=== PATIENT | male | born 1960 | race Caucasian/White ===

== ENCOUNTER 2016-08-15 07:52 | Observation (INO) | payer OTHER ==
[2016-08-15] VITALS (8 sets, daily range): BP systolic 109–125; BP diastolic 69–86; PULSE 70–84; RESP 12–18; O2SAT 97–99
[~2016-08-15] VITALS: Ht 167.6 cm; Wt 70.2 kg
[~2016-08-15 07:52] MED LIST: CITA20TA11 PO; FERR-83 PO; HYDR-4003 PO; LIDO700A6 TP; MULT-1018 PO; NORT10CA PO; OMEP20CA11 PO
--- NOTE | 2016-08-15 08:00 | ED.REPORT ---
HPI-General Illness Date of Service Aug 15, 2016 ED Provider: Tam See Patient is a 55 year old male who presents to the ED complaining of confusion onset 3 days ago. Per spouse, his confusion began night after reportedly taking muscle relaxers and Tylenol PM. Associated symptoms include shuffled gate and altered memory. He was seen in the ED for these symptoms and slurred speech. His reports that his speech is no longer impacted at this time. He is not experiencing incontinence or any other symptoms. reports that patient has been looking for his father in their house and thinks that his father lives with them. His father actually lives in [place] and has never lived with them. He has also been actively looking for his mother who in 2009. believes he has a history of non-specific brain trauma from "when he was younger". His reports that he does not drink and has stopped all medications. After his left the room, patient states that he drinks only when he takes his medications "to help increase their effect". He drank as recently as last night. He was given Oxycodone after his elbow surgery last month. He is also taking Nortriptyline, Omeprazole, Citalopram, and 4 Tylenol PM nightly. Nursing Notes Stated Complaint: HALLUCINATING Nursing Notes Reviewed: Yes Allergies: Coded Allergies: NSAIDS (Non-Steroidal Anti-Inflamma (Verified Adverse Reaction, Severe, caused GI bleed, 08/12/16) Scheduled Citalopram (Citalopram) 20 Mg Tablet 20 MG PO DAILY Ferrous Sulfate (Ferrous Sulfate) 325 Mg Tablet 325 MG PO DAILY Lidocaine (Lidoderm) 700 Mg Adh..patch 1 PATCH TP UD Multivitamin (Multi Vitamin Daily) 1 Each Tablet 1 EACH PO DAILY Nortriptyline (Nortriptyline) 10 Mg Capsule 30 MG PO HS Omeprazole (Omeprazole) 20 Mg Capsule.dr 20 MG PO DAILY Scheduled PRN Hydrocodone-Acetaminophen 5-325 mg (Hydrocodone-Acetaminophen 5-325 mg) 1 Each Tablet 1 TABLET PO Q4H PRN PRN For Pain General Time Seen by MD: 07:59 Chief Complaint Other (Confusion ) Hx Obtained From: Patient, Spouse Arrived By: Walk-in Onset Occurred: 3 days ago Symptom Duration: Since onset Recent Healthcare: Recent doctor visit Similar Sx Previous: Yes Past Medical History Past Medical History Notes: Neuro: Struck PCP: Daren Past Medical History Piriformis syndrome Cervical degenerative disk disease History of upper GI bleed because of peptic ulcers in 1994 and November 2012. History of recurrent headaches. hospital admission for lower extremity abscess Stenosis Reports: GERD Past Surgical History Ankle surgery thumb surgery hernia surgery right elbow surgery Smoking History Never Smoker Social History Alcohol Use: 1-3 per day Drug Use: Denies drug use Other Social History: Good social support, Lives with children, Local resident Ambulatory Status Independent Review of Systems + shuffled gait Full Review of Systems Male: Denies Incontinence Neurologic: Reports: Confusion, Problem walking, Denies: Slurred speech Complete sys rev & neg: except as marked. Physical Exam Vital Signs Vital Signs Date Time Temp Pulse Resp B/P Pulse Ox O2 Delivery O2 Flow Rate FiO2 08/15/16 09:37 70 12 112/74 99 Room Air 08/15/16 08:05 36.7 77 18 109/80 99 Room Air Initial VS: Reviewed Neck: Full range of motion Respiratory: Breath sounds normal, Clear to auscultation, No respiratory distress Cardiovascular: Regular rate & rhythm, Heart sounds normal, Intact distal pulses Abdomen / GI: Soft, Non-tender Extremities: Vascular intact, Neuro intact Skin: Warm, Dry General/Constitutional: Awake, No acute distress Head / Eyes: Normocephalic Eye Movement: Positive: Nystagmus horizontal (Bilateral ) Neurologic: Speech NL Mental Status: Positive: Confused ataxic gait Interpretation & Diagnostics Lab Results Interpretation Result Diagram: 08/15/16 0848 08/15/16 0848 Test 08/15/16 08:48 08/15/16 08:52 White Blood Count 7.2th/mm3 (3.8-10.1) Red Blood Count 4.88mil/mm3 (4.40-5.80) Hemoglobin 15.0g/dL (13.8-17.2) Hematocrit 44.2% (41.0-50.0) Mean Corpuscular Volume 90.6fL (81-100) Mean Corpuscular Hemoglobin 30.7pg (27.0-35.0) Mean Corpuscular Hemoglobin Concent 33.9% (32.0-37.0) Red Cell Distribution Width 12.3% (12.3-15.4) Platelet Count 193bil/L (150-400) Neutrophils (%) (Auto) 70.7% (40-74) Lymphocytes (%) (Auto) 14.7% (14-46) Monocytes (%) (Auto) 10.3% (4-12) Eosinophils (%) (Auto) 3.5% (0-5) Basophils (%) (Auto) 0.7% (0-3) Sodium Level 138mEq/L (134-144) Potassium Level 4.3mEq/L (3.5-5.2) Chloride Level 99mEq/L (97-108) Carbon Dioxide Level 27mmol/L (18-29) Blood Urea Nitrogen 17mg/dL (6-24) Creatinine 0.76mg/dL (0.76-1.27) Estimat Glomerular Filtration Rate 113mL/min (>59) Glucose Level 101mg/dL (60-99) Calcium Level 9.7mg/dL (8.5-10.1) Magnesium Level 1.9mg/dL (1.6-2.6) Total Bilirubin 0.3mg/dL (0.0-1.2) Aspartate Amino Transf (AST/SGOT) 14U/L (0-50) Alanine Aminotransferase (ALT/SGPT) 25U/L (0-44) Alkaline Phosphatase 73U/L (25-150) Ammonia 32ug/dL (18-53) Total Protein 7.1g/dL (6.4-8.4) Albumin 3.9g/dL (3.4-5.0) Salicylates Level < 3.0ug/mL (30-250) Acetaminophen Level < 15.0ug/mL Rx (10-25) Alcohol, Quantitative < 10mg/dL (0-10) Hold Sung Top Tube Received (Received) ECG Interpretation ECG Interpretation: Sinus rate 76 Time: 08:33 Re-Eval/Medical Decision Med Decision/Clinical Course Patient has bilateral horizontal nystagmus, ataxia and confusion concerning for Warneke's encephalopathy. Differential diagnosis also includes polysubstance abuse, drug induced encephalopathy, or subacute frontal lobe infarct (though this seems less likely). I have no suspicion of acute infectious pathology such as encephalitis and no lumbar puncture, antibiotics, or other diagnostics are performed other than as provided above. Recent head CT was performed within the last few days. IV thiamine and banana bag are given. Patient will be admitted for further treatment. MRI should be considered Time of Eval: 09:52 Re-Evaluation/Progress Note: Discussed need for admission. Patient understands and agrees with plan. All questions addressed at this time. Consultation : Referral / Consult Name: James Servin MD Consulted With: Hospitalist Call Returned at: 10:16 Mill Crane Operator: Will see patient, Agrees with eval, Agrees with plan, Accepts admit Note: Discussed patient's case. Accepts admit. Counseled Regarding: Diagnosis, Lab results, Need for admission Discharge & Departure Primary Impression: Wernicke encephalopathy Disposition: ADMITTED TO HOSPITAL Referrals: Chuckie Mercedes MD (PCP) Scribe Attestation Portions of this note were transcribed by Jameson Bhagat. I, Dr. See personally performed the history, physical exam and medical decision-making; I reviewed and confirmed the accuracy of the information in the transcribed note. Signed by: Jameson Bhagat 08/15/16, 1019 copies to: Chuckie Mercedes MD; Juan Saldana MD, Timothy S DO Aug 15, 2016 07:59 JAMESON BHAGAT Aug 15, 2016 08:18
[2016-08-15] MEDS ORDERED: 0.9% Sodium Chloride 1,000 ML IV ONE (08:15)
[2016-08-15 08:56] LABS: BASOPHILS % (AUTO) 0.7 % (0-3); EOSINOPHILS % (AUTO) 3.5 % (0-5); MONOCYTES % (AUTO) 10.3 % (4-12); Mean Corpuscular Hemoglobin 30.7 pg (27.0-35.0); Mean Corpuscular Volume 90.6 fL (81-100); NEUTROPHILS % (AUTO) 70.7 % (40-74); Platelet Count 193 bil/L (150-400)
[2016-08-15] MEDS ORDERED: MULTIVITAMINS IV ONE (09:00)
[2016-08-15] MEDS ORDERED: MAGNESIUM SULFATE IV ONE (09:00)
[2016-08-15] MEDS ORDERED: [UNRECOGNIZED DRUG - OTHER] IV ONE (09:00)
[2016-08-15] MEDS ORDERED: Thiamine Inj 500 MG in Dextrose 5% 50 ML IV ONE (09:00)
[2016-08-15] MEDS ORDERED: FOLIC ACID IV ONE (09:00)
[2016-08-15 09:34] LABS: Magnesium 1.9 mg/dL (1.6-2.6)
[2016-08-15] MEDS ORDERED: Polyethylene Glycol (PEG) 17 Gm Powder PO PRN (10:50)
[2016-08-15] MEDS ORDERED: Alum-Mag Hydrox-Simeth 30 mL Suspension PO PRN (10:50)
[2016-08-15] MEDS ORDERED: Ondansetron 2 mg/mL 2 mL Inj IVPUSH PRN (10:50)
[2016-08-15] MEDS: 0.9% Sodium Chloride 1,000 ML IV SCH ×2 (12:03→20:49)
--- NOTE | 2016-08-15 12:28 | NUR ---
Admit To [facility] room 1022 from ER via stretcher at 11am. Report received from Alejo Gant. Pt drowsy, drifts to sleep and unable to hold attention, but wakes very easily to voice. RR 16-18. Oriented x3, memory loss. Shuffling gait, unsteady on feet. Equal strength and movement in all extremities. VSS, banana bag infusing. Does not follow directions well. [place] and bed alarm on. Med rec reviewed via pt and report. States he also takes a "muscle relaxer" name unknown.
[2016-08-15] MEDS ORDERED: Thiamine Inj 500 MG in Dextrose 5% 50 ML IV SCH (14:00)
--- NOTE | 2016-08-15 14:05 | NUR ---
Off unit Pt off unit via wheelchair for MRI at this time.
--- NOTE | 2016-08-15 14:06 | NUR ---
PT eval attempted but not completed due to patient off of the unit for MRI.
[2016-08-15 14:47] LABS: APPEARANCE,URINE CLEAR (CLEAR,HAZY); COLOR,URINE YELLOW (YELLOW); OCCULT BLOOD,URINE NEGATIVE (NEGATIVE); UROBILINOGEN,URINE NORMAL (NORMAL)
--- NOTE | 2016-08-15 15:49 | PCM.HPMED ---
Subjective Date of Service Aug 15, 2016 Primary Provider: Admitting Physician: James Servin MD Primary Care Physician: Chuckie Mercedes MD Attending Physician: James Servin MD Admit Status: From the Emergency Department, Full Admit, Admit to Red Team Chief Complaint: Confusion/3 days Unsteady gait/3 days History of Present Illness: 55-year-old gentleman with past medical history of headaches, history of bleeding duodenal ulcer, alcohol/substance/prescription meds abuse was brought in by his due to confusion and unsteady gait of 3 days. noticed patient has been progressively confused, disoriented for the last 3 -4 days. He asks for his dad and states his dad lives with them while he lives in [place] . He also asks where his mom is who is in 2009. Patient also admits that he is disoriented and confused. He was brought in to ED on 08/13 . Gave history of alcohol drinking, CT head unremarkable. Discharged home He continued to be confused and disoriented which prompted ED visit today. Patient admits he drinks 4 drinks of vodka every day. Last drink night of . He also admits taking multiple prescription narcotics and muscle relaxants. He had recent surgery on the left elbow tendon on 08/03. Prescribed nortriptyline, oxycodone and tizanidine. Patient admits he abuses them takes appropriately. states patient has a big container of tablets, he mixed different tablets including his 's and takes them. Patient interviewed with . later called from home and states she found unknown white powders in the garage. He also has unsteady gait and walks like a drunken person. ED course: Vitals unremarkable, labs unremarkable, alcohol negative, confused, ataxic gait noted, reportedly had nystagmus. Banana bag and Thiamine 500 mg IV started for Wernicke encephalopathy. Review of Systems: A comprehensive review of systems performed, pertinent positives and negatives included in history of present illness Allergies Coded Allergies: NSAIDS (Non-Steroidal Anti-Inflamma (Verified Adverse Reaction, Severe, caused GI bleed, 08/12/16) Home Medications Oxycodone 5 mg by mouth every 4 hours Citalopram 20 mg by mouth daily Nortriptyline 10 mg at bedtime, started on 07/29 Omeprazole 20 mg by mouth daily PMH headaches, history of bleeding duodenal ulcer, alcohol/substance/prescription meds abuse Cervical spine degenerative disc disease Surgical History ankle surgery Thumb surgery Hernia repair Left elbow tendon surgery on 08/03/16 Family History His mom due to COPD Father alive, was diagnosed with prostate CA at age 63. He also had an uncle diagnosed with prostate cancer in his 60's Social History Hx Alcohol Use: Yes (1-2 drinks per day) Hx Substance Use: Yes (marijuana) Hx Tobacco Use: No Smoking Status: Never Smoker Living Arrangement: with Family (with his and 2 teenage daughters) Exam Vital Signs Vital Sign - Last Date Time Temp Pulse Resp B/P Pulse Ox O2 Delivery O2 Flow Rate FiO2 08/15/16 11:55 80 08/15/16 11:11 36.1 18 120/82 99 Room Air Exam Gen. patient is lying comfortably in hospital bed HEENT: Head is normocephalic atraumatic, Pupils equal and reactive, extraocular movements intact, Lungs clear to auscultation bilaterally Heart regular rate and rhythm without murmurs gallops or rubs Abdomen soft nontender without hepatosplenomegaly Extremities pulses are present dorsalis pedis posterior tibialis and radial. Skin is warm and dry there are no rashes, Psych alert but not oriented to place and time. Neuro cranial nerves II through XII are grossly intact.. No nystagmus. Ataxic gait. .poor Coordination on [id number] test bilaterally. Lymph: There is no lymphadenopathy appreciated in the cervical supra infraclavicular regions : no tierney Lab and Diagnostics Result Diagram: 08/15/16 0848 08/15/16 0848 X-Rays, CTs and MRIs MRI IMPRESSION: BRAIN MRI: No evidence of acute ischemia. Mild right maxillary sinus disease BRAIN MR ANGIOGRAM: Negative examination NECK MR ANGIOGRAM: Diffuse narrowing of the right V4 segment, presumably congenital atresia versus atherosclerotic narrowing however remains patent. Otherwise, negative examination The estimate of stenosis included in the report of the imaging study was calculated using the NASCET method Dictated by: Darrell Koehler M.D. on 08/15/2016 at 15:52 Assessment & Plan 55-year-old gentleman with past medical history of headaches, history of bleeding duodenal ulcer, alcohol/substance/prescription meds abuse was brought in by his due to confusion and unsteady gait of 3 days. # Acute confusion, POA -Due to Wernicke encephalopathy versus toxic encephalopathy due to drugs -History and exam consistent with Wernicke encephalopathy -MRI unremarkable -will do urine tox screen -Continue thiamine 500 mg IV every 8 H for 48 hours -Serial neuro exam -D51/2NS 100ml/h # Alcohol abuse/substance/prescription med - Watch for withdrawal,CIWA protocol. Last drink 08/13 - referral for outpatient resources #history of duodenal ulcer -ppi Discussed CODE STATUS, full code Patient admitted under inpatient status with expected length of stay > 2 midnights for severity of present symptoms, complexities of treatment plan and risk for adverse events Time spent 50 minutes copies to: Chuckie Mercedes MD, Melaku MD Aug 15, 2016 15:49
--- NOTE | 2016-08-15 15:54 | DRSVH ---
PROCEDURE: MRI STROKE PROTOCOL ([id number]) Pre- and post-contrast brain MRI, non-contrast brain MR angiogram, pre- and postcontrast neck MR amisha ogram INDICATIONS: wernickies encephalopathy,r/o stroke TECHNIQUE: Brain: Noncontrast axial T1 spin echo, axial T2 fast spin echo, sagittal and axial FLAIR, coronal T2 fast spin echo, axial gradient echo, axial diffusion and ADC through the brain. After the administr ation of contrast, axial 3D VIBE of the cranial vasculature and brain. Brain MRA: Non-contrast 3-D time of flight MR angiogram, with multiple snlaycw-dzgfnqdhs-cftqldkaoj (MIP) reformats performed. Neck MRA: Axial and sagittal TruFISP through the neck. Coronal dynamic MR angiogram during administ ration of contrast in the arterial and venous phases, with 3-dimenstional gtfagtp-zgdkcykox-ajpzvhvbk n (MIP) reformats constructed from subtraction images. COMPARISON: [facility], CT, CT BRAIN WO CON, 08/12/2016, 22:33. FINDINGS: Image quality: Excellent. BRAIN: CSF spaces: Ventricles are normal in size and shape. Basal cisterns are patent. No extra-axial flu id collections. Brain: No intracranial bleeds or mass effects. Scattered nonspecific mild white matter signal baker es statistically representing chronic microvascular ischemic disease. [place]-white matter interface is normal. Diffusion weighted images show no acute ischemic insults. Br ainstem appears normal. Normal intravascular flow voids are present. No abnormal intracranial enhan cement. Skull and face: Calvarial marrow signal is normal. Orbits appear normal. Sinuses: Right maxillary sinus mucosal thickening. BRAIN MR ANGIOGRAM: Anterior circulation: Intracranial internal carotid arteries are normal in size and enhancement. Th e flow within the paired anterior cerebral arteries is normal and symmetric. The flow within the mid dle cerebral arteries is normal and symmetric. The anterior communicating artery is seen. No stenos es, occlusions, or aneurysms. Posterior circulation: The visualized portions of the vertebral arteries demonstrate normal caliber, and join to form a normal appearing basilar artery. Incidentally noted origin of the right pos terior cerebral artery. The flow within the posterior cerebral arteries is normal and symmetric. No stenoses, occlusions, or aneurysms. NECK MR ANGIOGRAM: Carotids: Great vessels demonstrate a conventional anatomy as they arise from the aortic arch. The origins of the common carotid arteries appear patent. The calibers and courses of both common caroti d arteries are normal. The bifurcation regions appear normal bilaterally. The internal carotid noemi liz demonstrate normal course and caliber. Posterior circulation: The origins of the vertebral arteries appear patent. Diffuse narrowing of the right V4 segment, possibly congenital atresia versus atherosclerotic narrowing. Normal appearing bas ilar artery. Miscellaneous: Subclavian arteries appear patent. Pre-contrast images through the neck show no soft tissue abnormalities. IMPRESSION: BRAIN MRI: No evidence of acute ischemia. Mild right maxillary sinus disease BRAIN MR ANGIOGRAM: Negative examination NECK MR ANGIOGRAM: Diffuse narrowing of the right V4 segment, presumably congenital atresia versus at herosclerotic narrowing however remains patent. Otherwise, negative examination The estimate of stenosis included in the report of the imaging study was calculated using the NASCET method Dictated by: Darrell Koehler M.D. on 08/15/2016 at 15:52 Approved by: Darrell Koehler M.D. on 08/15/2016 at 15:52
[2016-08-15] MEDS: Pantoprazole 20 mg ER24 Tablet PO SCH ×2 (16:15→20:37)
[2016-08-15] MEDS: Multivit-Miner-Folic Acid-Iron Tablet PO SCH (17:10)
[2016-08-15] MEDS: Thiamine Inj 500 MG in Dextrose 5% 50 ML IV SCH (18:54)
[2016-08-16] VITALS (8 sets, daily range): BP systolic 107–151; BP diastolic 69–80; PULSE 74–82; RESP 16–18; O2SAT 95–97
[2016-08-16] MEDS: 0.9% Sodium Chloride 1,000 ML IV SCH ×2 (00:51→16:49)
--- NOTE | 2016-08-16 02:00 | NUR ---
Pt. status VSS.Walt. food and fluids w/o c/o nausea.CIWA score 4 at start of shift,6 at this time.Pt.given 1mg ativan IV at 2330 for anxiety and helpful.States that he wants to go home and unable to sleep here yet dozes back off and fairly cooperative thus far.Gait still unsteady but improving.Ref. to use urinal and amb. to the BR with SBA.Sleeping intermittently and resting comfortably at this time.Will cont. to monitor.
[2016-08-16] MEDS: Thiamine Inj 500 MG in Dextrose 5% 50 ML IV SCH ×3 (02:43→22:42)
[2016-08-16 07:00] LABS: BASOPHILS % (AUTO) 1.1 % (0-3); MONOCYTES % (AUTO) 12.6 % (4-12); Mean Corpuscular Hemoglobin 30.8 pg (27.0-35.0); Mean Corpuscular Volume 90.2 fL (81-100); NEUTROPHILS % (AUTO) 63.6 % (40-74); Platelet Count 184 bil/L (150-400)
[2016-08-16 07:22] LABS: Magnesium 1.9 mg/dL (1.6-2.6)
[2016-08-16] MEDS: Multivit-Miner-Folic Acid-Iron Tablet PO SCH (10:38)
[2016-08-16] MEDS: Pantoprazole 20 mg ER24 Tablet PO SCH ×2 (10:38→20:10)
--- NOTE | 2016-08-16 11:48 | NUR ---
Evaluation completed. Please go to "Notes" then click on "Assessments and Notes" (bottom left corner of screen). Then select appropriate discipline tab on top of screen.
--- NOTE | 2016-08-16 14:46 | NUR ---
Social Work Note - Chemical Dependency Assessment Ace Nichols is a 55 yr old who was admitted to hospital for weakness, falls - identified to be withdrawing from ETOH and pain meds. EMR reviewed: Pt has [employer] insurance, his PCP is Dr Mercedes. EVENT DESIGNER met with pt - pt was alert, oriented, able to share information clearly. Last [facility] report was 4. Pt states he lives at home with his and two kids 17,15. 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 He is independent at baseline. Pt admits to drinking 6-8 shots of vodka a night as well as taking Vicodin and Oxy for back and elbow pain. He also takes 3-4 tylenol PM nightly to sleep. History of substance use: Pt states he started drinking in his 30s. He states that he didn't think he had a problem until this admission. He states that he went to work daily, never drinks and drives, never fights. History of withdrawal: Pt denies any hx of withdrawal symptoms. He states that he has had multiple concussions and he believes that his memory problems are from previous head injuries. Family hx: Pt believes that his mother was an alcoholic that did not get treatment, he has two brothers who struggle with alcohol as well. Denies any drug use. Hx of sobriety: Pt states he has been able to stop drinking in the past for a week or two when he goes on trips. He identifies his family as good supports who will encourage him to get sober. Pt's perception of change: Pt states that this is a wake up call for him - he states that he sees himself as a healthy individual who does not want to be dependent on anything. He is open to getting help through counseling. He denies wanting AA or inpt treatment at this time. Suicide risk: Pt denies any suicidal ideations. Recommendations: EVENT DESIGNER referred pt to outpt counseling and directed him to call his insurance for in network providers. EVENT DESIGNER provided phone numbers, rethinking drinking brochures as well as education on ETOH and dependence. Pt states he will talk with his family and will call for intake. Plan: Home with in POV - PT cleared pt for home when medically stable. AMBERLY Medina
--- NOTE | 2016-08-16 16:33 | PCM.PNMED ---
Subjective Date of Service Aug 16, 2016 Subjective Patient alert and oriented 3. Coordination and gait improved. talked to his and 2 teenager daughters. At home they went through his belongings and phone. They found unknown white powder . Also found samples and online order information that he has been ordering [id number] (narcotic) from [employer]. Family very upset about it. waterside worker also talked to patient and his family and gave outpatient resource information. Exam Vital Signs Vital Sign - Last Date Time Temp Pulse Resp B/P Pulse Ox O2 Delivery O2 Flow Rate FiO2 08/16/16 15:01 36.8 74 18 149/80 97 Room Air Intake and Output 08/15/16 08/15/16 08/16/16 Cumulative From/Thru 15:00 23:00 07:00 08/15/16 08:52 - 08/16/16 06:21 Intake Total 1000 ml 0 ml 2171 ml 3171 ml Output Total 250 ml 250 ml Balance 1000 ml -250 ml 2171 ml 2921 ml Intake Oral 0 ml 300 ml 300 ml IV Total 1000 ml 1871 ml 2871 ml Output Urine Total 250 ml 250 ml # Voids 2 3 5 # Bowel Movements 0 0 Exam Gen. patient is lying comfortably in hospital bed HEENT: Head is normocephalic atraumatic, Pupils equal and reactive, extraocular movements intact, Lungs clear to auscultation bilaterally Heart regular rate and rhythm without murmurs gallops or rubs Abdomen soft nontender without hepatosplenomegaly Extremities pulses are present dorsalis pedis posterior tibialis and radial. Skin is warm and dry there are no rashes, Psych alert but not oriented to place and time. Neuro cranial nerves II through XII are grossly intact.. No nystagmus. Ataxic gait. and poor Coordination on zlpvgm-[id number] test bilaterally but improved from yesterday Lymph: There is no lymphadenopathy appreciated in the cervical supra infraclavicular regions : no tierney IVs and Medications Medications Reviewed: Medications were reviewed in detail Lab and Diagnostics Result Diagram: 08/16/1663408/16/16 06 X-Rays, CTs and MRIs MRI IMPRESSION: BRAIN MRI: No evidence of acute ischemia. Mild right maxillary sinus disease BRAIN MR ANGIOGRAM: Negative examination NECK MR ANGIOGRAM: Diffuse narrowing of the right V4 segment, presumably congenital atresia versus atherosclerotic narrowing however remains patent. Otherwise, negative examination The estimate of stenosis included in the report of the imaging study was calculated using the NASCET method Dictated by: Darrell Koehler M.D. on 08/15/2016 at 15:52 Assessment & Plan 55-year-old gentleman with past medical history of headaches, history of bleeding duodenal ulcer, alcohol/substance/prescription meds abuse was brought in by his due to confusion and unsteady gait of 3 days. # Acute confusion, POA -Due to Wernicke encephalopathy versus toxic encephalopathy due to drugs. Possibly both -History and exam consistent with Wernicke encephalopathy -Family also found out that he has been ordering [id number] ( narcotic ) on line from [employer] and using it. -MRI unremarkable -urine tox screen positive for benzodiazepines and cannabinoids -Continue thiamine 500 mg IV every 8 H for 48 hours -Serial neuro exam -D51/2NS 100ml/h -Confusion improving # Alcohol abuse/substance/prescription med - Watch for withdrawal,CIWA protocol. Last drink 08/13 - gave outpatient resources information #history of duodenal ulcer -ppi Discussed CODE STATUS, full code Possible discharge tomorrow James Servin MD Aug 16, 2016 16:33
--- NOTE | 2016-08-16 18:19 | NUR ---
Activity Pt ambulating hallway at start of shift with sitter/pump machine operator. Pt spoke with MD as well as stated to this RN, that he wanted to go home today. Reiterated with pt what had stated and that more than likely he would stay one more night. Pt agreeable at that time. At 1200, ANALYTICAL ENGINEER called and stated that pt saying 'he wants his sweatpants and says he's going to go home after lunch.' knot borer notified, notified, and this RN spoke with pt re: current plan of stay. Pt still stating wanting to go home to his family. Awaiting workup with [facility]. Post meeting with SW, this RN went in to reassess pt and pt no longer adamantly wanting to go home. Tearful and pleasant, stated he realizes that he needs some help. Stated he was given resources by SW and stated thankfulness for the care he has been given thus far. MD later in to speak with pt. And pt agreeable to stay overnight. Continues to share sitter with room 1023 - LIAT farley in place. Care continues. Sister present in room at this time.
[2016-08-16] MEDS ORDERED: 0.9% Sodium Chloride 250 ML ONE (22:40)
[2016-08-17 00:13] VITALS: PULSE 81
[2016-08-17] MEDS: 0.9% Sodium Chloride 1,000 ML IV SCH (02:49)
[2016-08-17 04:41] VITALS: BP 120/82; PULSE 83; RESP 16; O2SAT 97
[2016-08-17] MEDS ORDERED: Thiamine Inj 500 MG in Dextrose 5% 50 ML IV SCH (06:30)
--- NOTE | 2016-08-17 07:33 | NUR ---
Mobility Patient is alert and oriented. He has been up ambulating around floor and tolerating well. Peripheral IV intact and patent.
[2016-08-17] MEDS: Multivit-Miner-Folic Acid-Iron Tablet PO SCH (08:06)
[2016-08-17] MEDS: Pantoprazole 20 mg ER24 Tablet PO SCH (08:07)
[2016-08-17 08:37] VITALS: BP 128/87; PULSE 74; RESP 20; O2SAT 97
--- NOTE | 2016-08-17 09:00 | NUR ---
outpt f/u Per pt, has appointment tomorrow morning for removal of stitches from L elbow.
[2016-08-17 12:22] VITALS: BP 120/82; PULSE 76; RESP 20; O2SAT 97
--- NOTE | 2016-08-17 12:41 | PCM.DIMED ---
Discharge Instructions Date of Service Aug 17, 2016 Dates of Hospitalization Aug 15, 2016 at 10:57 Discharge Diagnosis Discharge Diagnosis # Acute confusion, POA -Due to Wernicke encephalopathy and toxic encephalopathy due to drugs. 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 you were treated with IV thiamine . please continue po Thiamine as prescribed. please follow up with rehabilitation centers outpatient for your substance and alcohol abuse problem. Follow-up plan Please follow up with PCP in 1 week. Follow-up Provider: Chuckie Mercedes MD Follow-up with PCP in: 1 week James Servin MD Aug 17, 2016 12:41
[2016-08-17] MEDS ORDERED: NORT10CA PO (12:43)
[2016-08-17] MEDS ORDERED: OMEP20CA11 PO (12:43)
[2016-08-17] MEDS ORDERED: CITA20TA11 PO (12:43)
[2016-08-17] MEDS ORDERED: THIA500T PO (12:43)
--- NOTE | 2016-08-17 13:13 | NUR ---
discharge Pt dc'd ambulatory with Josi and [facility] at 1313. All belongings with pt. All discharge instructions reviewed and pt verbalized understanding. looking into outpt substance use treatment. IV dc'd w/0 issue.
--- NOTE | 2016-08-17 14:18 | PCM.DC.MED ---
Discharge Summary Date of Service Aug 17, 2016 Dates of Hospitalization Date of Hospital Admission Aug 15, 2016 at 10:57 Date of Discharge: Aug 17, 2016 Providers: Admitting Physician: James Rosa MD Primary Care Physician: Chuckie Mercedes MD Attending Physician: James Rosa MD Diagnosis at Time of Discharge Diagnosis at Time of Discharge # Acute confusion, POA -Due to Wernicke encephalopathy and toxic encephalopathy due to drugs. Possibly both # Alcohol abuse/substance/prescription meds abuse #history of duodenal ulcer Consultations No instructional design consultant was involved with this case Procedures XRay, CTs & MRIs MRI IMPRESSION: BRAIN MRI: No evidence of acute ischemia. Mild right maxillary sinus disease BRAIN MR ANGIOGRAM: Negative examination NECK MR ANGIOGRAM: Diffuse narrowing of the right V4 segment, presumably congenital atresia versus atherosclerotic narrowing however remains patent. Otherwise, negative examination The estimate of stenosis included in the report of the imaging study was calculated using the NASCET method Dictated by: Darrell Koehler M.D. on 08/15/2016 at 15:52 Brief History 55-year-old gentleman with past medical history of headaches, history of bleeding duodenal ulcer, alcohol/substance/prescription meds abuse was brought in by his due to confusion and unsteady gait of 3 days. noticed patient has been progressively confused, disoriented for the last 3 -4 days. He asks for his dad and states his dad lives with them while he lives in [place] . He also asks where his mom is who is in 2009. Patient also admits that he is disoriented and confused. He was brought in to ED on 08/13 . Gave history of alcohol drinking, CT head unremarkable. Discharged home He continued to be confused and disoriented which prompted ED visit today. Patient admits he drinks 4 drinks of vodka every day. Last drink night of . He also admits taking multiple prescription narcotics and muscle relaxants. He had recent surgery on the left elbow tendon on 08/03. Prescribed nortriptyline, oxycodone and tizanidine. Patient admits he abuses them takes appropriately. states patient has a big container of tablets, he mixed different tablets including his 's and takes them. Patient interviewed with . later called from home and states she found unknown white powders in the garage. He also has unsteady gait and walks like a drunken person. ED course: Vitals unremarkable, labs unremarkable, alcohol negative, confused, ataxic gait noted, reportedly had nystagmus. Banana bag and Thiamine 500 mg IV started for Wernicke encephalopathy. Hospital Course 55-year-old gentleman with past medical history of headaches, history of bleeding duodenal ulcer, alcohol/substance/prescription meds abuse was brought in by his due to confusion and unsteady gait of 3 days. # Acute confusion, POA -Due to Wernicke encephalopathy versus toxic encephalopathy due to drugs. Possibly both -History and exam consistent with Wernicke encephalopathy -Family also found out that he has been ordering [id number] ( narcotic ) on line from [employer] and using it. -MRI unremarkable -urine tox screen positive for benzodiazepines and cannabinoids -Treated with thiamine 500 mg IV every 8 H for 48 hours. He had improvement of coordination on coxzha-vs-nxmj exam and gait.. Advised to continue thiamine 250 mg daily -Confusion improving # Alcohol abuse/substance/prescription med - Watch for withdrawal,CIWA protocol. Last drink 08/13 - gave outpatient resources information. Patient looks motivated to follow- through and get out of his substance issue. #Cervical degenerative disc disease: Follow up with Dr Saldana #history of duodenal ulcer -ppi Discussed CODE STATUS, full code discharge home Alert and oriented 3. Condition on discharge stable Exam Vital Signs (Last) Date Time Temp Pulse Resp B/P Pulse Ox O2 Delivery O2 Flow Rate FiO2 08/17/16 12:22 36.8 76 20 120/82 97 Room Air Exam Gen. patient is lying comfortably in hospital bed HEENT: Head is normocephalic atraumatic, Pupils equal and reactive, extraocular movements intact, Lungs clear to auscultation bilaterally Heart regular rate and rhythm without murmurs gallops or rubs Abdomen soft nontender without hepatosplenomegaly Extremities pulses are present dorsalis pedis posterior tibialis and radial. Skin is warm and dry there are no rashes, Psych alert but not oriented to place and time. Neuro cranial nerves II through XII are grossly intact.. No nystagmus. Ataxic gait. and poor Coordination on [id number] test bilaterally but improved from yesterday Lymph: There is no lymphadenopathy appreciated in the cervical supra infraclavicular regions : no tierney Test 08/15/16 08:48 08/15/16 08:52 08/15/16 13:30 08/16/16 06:35 Ammonia 32ug/dL (18-53) Salicylates Level < 3.0ug/mL (30-250) Acetaminophen Level < 15.0ug/mL Rx (10-25) Alcohol, Quantitative < 10mg/dL (0-10) Hold Sung Top Tube Received (Received) Urine Color Yellow (YELLOW) Urine Appearance Clear (CLEAR,HAZY) Urine pH 6.0 (5.0-8.0) Urine Specific [place] 1.020 (1.003-1.035) Urine Protein Negativemg/dL (NEG,TRACE) Urine Glucose (UA) Negativemg/dL (NEGATIVE) Urine Ketones Negativemg/dL (NEGATIVE) Urine Occult Blood Negative (NEGATIVE) Urine Nitrite Negative (NEGATIVE) Urine Bilirubin Negative (NEGATIVE) Urine Urobilinogen Normalmg/dL (NORMAL) Urine Leukocyte Esterase Negative (NEGATIVE) Urine RBC 0-2/hpf (0-2) Urine WBC 0-5/hpf (0-5) Urine Epithelial Cells Occasional/hpf (NONE-MOD) Urine Crystals None seen (NONE SEEN) Urine Bacteria Few/hpf (NONE-FEW) Urine Hyaline Casts None/lpf (NONE) Urine Granular Casts None seen (NONE SEEN) Urine Waxy Casts None seen (NONE SEEN) Urine Red Blood Cell Casts None seen (NONE SEEN) Urine White Blood Cell Casts None seen (NONE SEEN) Urine Mucus None seen (None Seen) Urine Trichomonas None seen (NONE SEEN) Urine Yeast None (NONE SEEN) Urinalysis Comment None Urine Culture Reflexed Not indicated Urine Opiates Screen Negative Urine Methadone Screen Negative Urine Barbiturates Screen Negative Urine Amphetamines Screen Negative Urine Benzodiazepines Screen Positive Urine Cocaine Metabolite Screen Negative Urine Cannabinoids Screen Positive White Blood Count 5.7th/mm3 (3.8-10.1) Red Blood Count 4.58mil/mm3 (4.40-5.80) Hemoglobin 14.1g/dL (13.8-17.2) Hematocrit 41.3% (41.0-50.0) Mean Corpuscular Volume 90.2fL (81-100) Mean Corpuscular Hemoglobin 30.8pg (27.0-35.0) Mean Corpuscular Hemoglobin Concent 34.1% (32.0-37.0) Red Cell Distribution Width 12.4% (12.3-15.4) Platelet Count 184bil/L (150-400) Neutrophils (%) (Auto) 63.6% (40-74) Lymphocytes (%) (Auto) 19.5% (14-46) Monocytes (%) (Auto) 12.6% (4-12) Eosinophils (%) (Auto) 3.0% (0-5) Basophils (%) (Auto) 1.1% (0-3) Sodium Level 140mEq/L (134-144) Potassium Level 4.0mEq/L (3.5-5.2) Chloride Level 104mEq/L (97-108) Carbon Dioxide Level 25mmol/L (18-29) Blood Urea Nitrogen 13mg/dL (6-24) Creatinine 0.74mg/dL (0.76-1.27) Estimat Glomerular Filtration Rate 117mL/min (>59) Glucose Level 90mg/dL (60-99) Calcium Level 8.8mg/dL (8.5-10.1) Magnesium Level 1.9mg/dL (1.6-2.6) Total Bilirubin 0.3mg/dL (0.0-1.2) Aspartate Amino Transf (AST/SGOT) 13U/L (0-50) Alanine Aminotransferase (ALT/SGPT) 19U/L (0-44) Alkaline Phosphatase 67U/L (25-150) Total Protein 6.2g/dL (6.4-8.4) Albumin 3.7g/dL (3.4-5.0) Discharge Medications Discharge Medications Citalopram (Citalopram) 20 Mg Tablet 20 MG PO DAILY Prescribed by: JAMES ROSA MD Ferrous Sulfate (Ferrous Sulfate) 325 Mg Tablet 325 MG PO DAILY (Reported) Lidocaine (Lidoderm) 700 Mg Adh..patch 1 PATCH TP UD (Reported) Multivitamin (Multi Vitamin Daily) 1 Each Tablet 1 EACH PO DAILY (Reported) Nortriptyline (Nortriptyline) 10 Mg Capsule 30 MG PO HS Prescribed by: JAMES ROSA MD Omeprazole (Omeprazole) 20 Mg Capsule.dr 20 MG PO DAILY Prescribed by: JAMES ROSA MD Thiamine HCl (Thiamine HCl) 500 Mg Tablet 500 MG PO DAILY Prescribed by: JAMES ROSA MD Followup Plan Disposition: Home Follow-up plan Please follow up with PCP in 1 week. 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 you were treated with IV thiamine . please continue po Thiamine as prescribed. please follow up with rehabilitation centers outpatient for your substance and alcohol abuse problem. Follow-up Provider: Chuckie Mercedes MD Follow-up with PCP in: 1 week Time spent 40 minutes counseling and coordinating discharge copies to: Chuckie Mercedes MD; Juan Saldana MD, Melaku MD Aug 17, 2016 14:18
--- NOTE | 2016-08-17 14:29 | NUR ---
Social Work Discharge D: EMR Reviewed. Pt is on day 2 of admission for Wernicke's Encephalopathy. Pt is medically stable and discharging home today via POV with family. CD assessment was completed with Pt on 08/16/16. Pt agreeable to Outpt CD and provided with resources and instructed to call to arrange an assessment. SW also met with Pt's spouse and 2 teenage daughters who just learned of the Pt's substance use. Spouse provided with CD resources for Pt as well as MH resources for herself and children on 08/16/16. SW encouraged to make appointments as soon as possible. A: Pt with substance use concerns P: Pt is medically stable and discharging home today via POV. Pt and family provided with CD/MH resources and will follow up on their own. JOSÉ MIGUEL Butler
== END 2016-08-17 13:11 | disposition home or self-care (01) ==
LOC: SED 07:52 → OSC 10:57 → INTOOBSV 10:57 → OBSVTOIN 10:57 → OSC 11:02 → MOC 08-17 04:35
PROVIDERS: ADMIT Internal Medicine; ATTEND Internal Medicine
DX: R41.0 Disorientation, unspecified (principal); G92 Toxic encephalopathy; T51.94XA Toxic effect of unspecified alcohol, undetermined, initial encounter; F10.96 Alcohol use, unspecified with alcohol-induced persisting amnestic disorder; K26.4 Chronic or unspecified duodenal ulcer with hemorrhage; R26.81 Unsteadiness on feet
CPT/HCPCS: 36415; 70549; 70553; 80053; 81000; 81002; 82140; 83735; 85025; 93005; 96361; 96365; 96375; 96376; 97161; 99285; A9585; G0378; G0480; J2060; J3475; J7030; J7050

== ENCOUNTER 2016-12-17 18:57 | Inpatient (IN) | payer OTHER ==
[~2016-12-17] VITALS: Ht 167.6 cm; Wt 72.3 kg
[~2016-12-17 18:57] MED LIST changes: -HYDR-4003 PO; +THIA500T PO
[2016-12-17 19:02] VITALS: BP 117/60; PULSE 76; RESP 15; O2SAT 100
[2016-12-17 19:11] VITALS: BP 117/60; PULSE 76; RESP 15; O2SAT 100
[2016-12-17] MEDS ORDERED: 0.9% Sodium Chloride 1,000 ML IV ONE (19:15)
[2016-12-17 19:41] LABS: BASOPHILS % (AUTO) 0.6 % (0-3); EOSINOPHILS % (AUTO) 0.5 % (0-5); MONOCYTES % (AUTO) 4.3 % (4-12); Mean Corpuscular Hemoglobin 31.1 pg (27.0-35.0); Mean Corpuscular Volume 90.8 fL (81-100); NEUTROPHILS % (AUTO) 79.6 % (40-74); Platelet Count 261 bil/L (150-400)
--- NOTE | 2016-12-17 19:56 | ED.REPORT ---
HPI-Abd Pain F 2 and Over Date of Service December 17, 2016 ED Provider: Dontrell Fuller MD The pt is a 56 y/o male w/ a hx of alcohol abuse, bleeding ulcers, spinal stenosis and endoscopy presenting to the ED w/ complaints of black stool onset yesterday afternoon. He has had two episodes, one yesterday afternoon and one episode this morning. He also reports a rapid heart rate when he stood up today w/ diaphoresis, shortness of breath, feelings of going between hot and cold, and muscle fatigue w/ exertion. He denies any feelings of lightheadedness, bright red blood in stool, chest pain, vomiting or nausea. The pt has been taking NSAIDS and has been noncompliant with his Omeprazole. He has no hx of heart problems and has had a blood transfusion in the past. The pt denies alcohol use in the last two weeks and did not experience any withdrawal symptoms when he quit. Nursing Notes Stated Complaint: LIGHTHEADED, DIZZY Chief Complaint: General Complaint Nursing Notes Reviewed: Yes Allergies: Coded Allergies: NSAIDS (Non-Steroidal Anti-Inflamma (Verified Adverse Reaction, Severe, caused GI bleed, 08/12/16) Scheduled Citalopram (Citalopram) 20 Mg Tablet 20 MG PO DAILY Ferrous Sulfate (Ferrous Sulfate) 325 Mg Tablet 325 MG PO DAILY Multivitamin (Multi Vitamin Daily) 1 Each Tablet 1 EACH PO DAILY Omeprazole (Omeprazole) 20 Mg Capsule.dr 20 MG PO DAILY Thiamine HCl (Thiamine HCl) 500 Mg Tablet 500 MG PO DAILY Scheduled PRN Hydrocodone-Acetaminophen 5-325 mg (Hydrocodone-Acetaminophen 5-325 mg) 1 Each Tablet 1 EACH PO TID PRN PRN For Pain General Time Seen by MD: 19:51 Chief Complaint Other (Black stool ) Hx Obtained from: Patient Arrived by: Walk-in Sudden in Onset?: Yes Onset Occurred: 1 day ago Symptom Duration: Since onset Recent Healthcare: No recent hospitalization, Recent doctor visit Similar Sx Previous: Yes Past Medical History Past Medical History Notes: Neuro: Struck PCP: Daren Past Medical History Bleeding ulcers Alcohol abuse hiatal hernia arthritis (neck and back) spinal stenosis Past Surgical History left tendon/wrist Smoking History Never Smoker Social History THC use Ambulatory Status Ambulatory Status: Independent Review of Systems Black stool Muscle fatigue w/ exertion Sensation of going between hot and cold Denies bright red blood in stool Respiratory: Reports: Shortness of breath Cardiovascular: Denies: Chest pain GI: Denies: Nausea Complete sys rev & neg: except as marked. Skin: Reports Diaphoresis Neurologic: Denies: Lightheaded Physical Exam Initial Vital Signs Vital Signs (First) Date Time Temp Pulse Resp B/P Pulse Ox O2 Delivery O2 Flow Rate FiO2 12/17/16 19:02 37.1 76 15 117/60 100 Room Air Initial VS: Reviewed General / Constitutional: Awake, Alert Respiratory / Chest: Breath sounds NL, Breath sounds = bilat, No respiratory distress, No rales, No rhonchi, No wheezing Cardiovascular: Heart rate NL, Regular rhythm, Heart sounds NL, No gallop, No murmurs, No rubs Abdomen: Soft Tenderness/Guarding/Rebound: Positive: Tender periumbilical (Mild) Back: Atraumatic, Full range of motion Head / Eyes: Atraumatic, Normocephalic, PERRL, EOMI ENT: Atraumatic, Airway patent, Mucous membranes moist Skin: Atraumatic, Color NL, No rash, Warm, Dry Rectum / Perineum: Atraumatic, No mass Non-tender Melena in the vault Neurologic: Orientation NL for age, Speech NL for age Neck: Supple, Full range of motion Psychiatric: Affect NL, Mood NL Interpretation & Diagnostics Orthostatics Supine: HR 74; BP 118/57 Standing: HR 112; BP 117/56 Lab Results Interpretation Result Diagram: 12/18/16 0055 12/17/16 1925 Test 12/17/16 19:25 12/17/16 20:30 White Blood Count 9.3th/mm3 (3.8-10.1) Red Blood Count 3.05mil/mm3 (4.40-5.80) Mean Corpuscular Volume 90.8fL (81-100) Mean Corpuscular Hemoglobin 31.1pg (27.0-35.0) Mean Corpuscular Hemoglobin Concent 34.3% (32.0-37.0) Red Cell Distribution Width 12.8% (12.3-15.4) Platelet Count 261bil/L (150-400) Neutrophils (%) (Auto) 79.6% (40-74) Lymphocytes (%) (Auto) 14.8% (14-46) Monocytes (%) (Auto) 4.3% (4-12) Eosinophils (%) (Auto) 0.5% (0-5) Basophils (%) (Auto) 0.6% (0-3) Prothrombin Time 10.3sec (8.1-12.5) Prothromb Time International Ratio 0.96ratio Sodium Level 134mEq/L (134-144) Potassium Level 4.1mEq/L (3.5-5.2) Chloride Level 97mEq/L (97-108) Carbon Dioxide Level 24mmol/L (18-29) Blood Urea Nitrogen 42mg/dL (6-24) Creatinine 0.56mg/dL (0.76-1.27) Estimat Glomerular Filtration Rate 160mL/min (>59) Glucose Level 172mg/dL (60-99) Calcium Level 9.2mg/dL (8.5-10.1) Magnesium Level 1.6mg/dL (1.6-2.6) Total Bilirubin 0.3mg/dL (0.0-1.2) Aspartate Amino Transf (AST/SGOT) 18U/L (0-50) Alanine Aminotransferase (ALT/SGPT) 19U/L (0-44) Alkaline Phosphatase 48U/L (25-150) Troponin T < 0.010ug/L (0.0-0.011) Total Protein 6.2g/dL (6.4-8.4) Albumin 4.0g/dL (3.4-5.0) Hold Sung Top Tube Received (Received) Hold Urine Received (Received) Lab Results Interpretation: 08/2016 hematocrit 41, hemoglobin 14 Inital (ED) hemoglobin 9.5 X-Ray Chest Interpretation Chest Xray Interpretation: IMPRESSION: No acute process. Dictated by: Celine Herrera M.D. on 12/17/2016 at 20:04 Approved by: Celine Herrera M.D. on 12/17/2016 at 20:05 View: Portable, 1 view Interpretation / Wet Read by: Interpret - Radiologist ECG Interpretation ECG Interpretation: Rate 78 Sinus rhytm normal Time: 20:56 Interpreted by: ED physician Re-Eval/Medical Decision Med Decision/Clinical Course 56-year-old male with a history of GI bleeding and 2 recent episodes of black tarry stool. He is experiencing presyncope and dyspnea with exertion. He has borderline positive orthostatic vital signs and a significant drop in hemoglobin and hematocrit as compared with August. Given that his MCV is normal this is thought to be acute. Case has been discussed with the hospitalist service and with GI. We started him on Protonix drip. We held nothing by mouth and crossmatched is admitted to the hospitalist service. Source of Hx: Old records Re-Evaluation/Progress : Time of Eval: 20:01 Patient Status: Condition improved Re-Evaluation/Progress Note: Pt rechecked, who is stable. He is informed of his diagnosis and the need for admission. The pt understands and agrees with the plan. All questions are addressed at this time. Consultation #1: Referral / Consult Name: Osvaldo Garibay MD Call Returned at: 20:09 Senior Production Manager: Agrees with eval, Agrees with plan Note: Consulted w/ Dr. Garibay, toll repairer central office. Discussed pts case. Consultation #2: Referral / Consult Name: Maicol Huff MD Consulted with: Hospitalist Requested Call at: 21:02 Senior Production Manager: Agrees with eval, Agrees with plan, Accepts admit Counseled Regarding: Diagnosis, Lab results, Need for admission Discharge & Departure Impression: Primary Impression: Upper GI bleeding Additional Impression: Acute blood loss anemia Disposition: ADMITTED TO HOSPITAL Discharge Condition All VS Reviewed: Yes Condition: Stable Referrals: Chuckie Mercedes MD (PCP) Scribe Attestation Portions of this note were transcribed by Charlie Murillo and Fredis Calles. I, Dr. Fuller personally performed the history, physical exam and medical decision- making; I reviewed and confirmed the accuracy of the information in the transcribed note. Signed by: Charlie Calles, Mariel, 12/18/16 and 0100. Chuckie Mercedes MD, Tai F December 17, 2016 19:56 FREDIS CALLES December 18, 2016 00:09 Dontrell Fuller MD December 18, 2016 02:08
[2016-12-17 19:57] LABS: INR 0.96 ratio
[2016-12-17 20:05] LABS: TROPONIN T < 0.010 ug/L (0.0-0.011)
--- NOTE | 2016-12-17 20:06 | DRSVH ---
PROCEDURE: X-RAY CHEST ONE VIEW, PORTABLE ([id number]) INDICATIONS: near syncope TECHNIQUE: One view of the chest was acquired. COMPARISON: [facility], CR, XR CHEST 1VW (PORTABLE), 03/31/2016, 19:41. FINDINGS: Surgical changes and devices: None. Lungs and pleura: No pleural effusions or pneumothorax. Lungs are clear. Mediastinum: Mediastinal contours appear normal. Heart size is normal. Bones and chest wall: No suspicious bony lesions. Overlying soft tissues appear unremarkable. IMPRESSION: No acute process. Dictated by: Celine Herrera M.D. on 12/17/2016 at 20:04 Approved by: Celine Herrera M.D. on 12/17/2016 at 20:05
[2016-12-17 20:12] VITALS: BP_SYST 117; BP_SYST 118; BP_DIAS 57; PULSE 74
[2016-12-17 20:13] LABS: Magnesium 1.6 mg/dL (1.6-2.6)
[2016-12-17] MEDS ORDERED: Pantoprazole Inj 80 MG in 0.9% Sodium Chloride 100 ML IV ONE (20:15)
[2016-12-17] MEDS ORDERED: Pantoprazole Inj 80 MG in 0.9% Sodium Chloride 80 ML IV ONE (20:15)
[2016-12-17] MEDS ORDERED: Pantoprazole 4 mg/mL 10 mL Inj IVPUSH ONE (20:25)
[2016-12-17] MEDS ORDERED: Alum-Mag Hydrox-Simeth 30 mL Suspension PO PRN (21:15)
[2016-12-17] MEDS ORDERED: HYDR-4003 PO (21:15)
[2016-12-17] MEDS ORDERED: Polyethylene Glycol (PEG) 17 Gm Powder PO PRN (21:15)
[2016-12-17 21:41] VITALS: BP 115/73; PULSE 87; RESP 16; O2SAT 99
[2016-12-17 22:07] VITALS: RESP 16
--- NOTE | 2016-12-17 22:28 | PCM.HPMED ---
Subjective Date of Service December 17, 2016 Primary Provider: Admitting Physician: Maicol Huff MD Primary Care Physician: Chuckie Mercedes MD Attending Physician: Maicol Huff MD Admit Status: From the Emergency Department, Full Admit, [facility] Telemetry Chief Complaint: Melanotic stools History of Present Illness: Ace Nichols is a 56 y/o male with prior Bleeding duodenal ulcers, Alcohol abuse, Chronic back pain who presenting to [facility] emergency department with complaints of black stool onset yesterday afternoon. He reported 2 episodes with the initial one yesterday afternoon and another episode this morning. associated symptoms includes mild epigastric discomfort, sharp 2/10 pain without any radiation, exacerbated with eating and no relieving factors. Patient also reports nausea but no vomiting or hematemesis. He also did not feel like eating since last night He also reports feeling his heart beating faster when he stands up w/ cold sweats, feelings of going between hot and cold. He denies any feelings of faintness, bright red blood in stool or chest discomfort. He recently took some Aleve at night for arthritis pain. He previously had a bleeding duodenal ulcer years ago related to NSAID. Patient aware Aleve is an NSAID but his arthritis pain has been bad. He was also suppose to take Omeprazole but did not take any for the last 4 days as he ran out Patient has not drink alcohol for about 2 weeks. He is currently in rehab as an outpatient. Patient is apologetic about his drinking as well as the medication abuse he endured in August but is currently clean. Case discussed with Dr Fuller. Vitals showed no tachycardia or hypotension. He discussed case with Dr Garibay. Currently on IV fluids and Protonix drip was started Review of Systems: Pertinent positives as noted in HPI. All other systems were reviewed and are negative Allergies Coded Allergies: NSAIDS (Non-Steroidal Anti-Inflamma (Verified Adverse Reaction, Severe, caused GI bleed, 08/12/16) Home Medications From [facility], NOT YET CONFIRMED Ace NicholsEffie [id number] 1960 11/25/2016 08:40 AM 08/19 citalopram 20 mg tablet take 1 tablet by oral route every day ferrous sulfate 325 mg (65 mg iron) tablet take 1 tablet by oral route every OTHER day hydrocodone 5 mg-acetaminophen 325 mg tablet take 1 tablet by oral route every 6 hours as needed for pain. Lyrica 75 mg capsule take 2 capsule by oral route 2 times every day multivitamin tablet take 1 tablet by oral route every day with food omeprazole 40 mg capsule,delayed release TAKE ONE CAPSULE BY MOUTH DAILY BEFORE A MEAL thiamine HCl (vitamin B1) 500 mg tablet take 1 tablet by oral route every day tiZANidine HCL 2MG TABLET TAKE ONE TABLET BY MOUTH EVERY 8 HOURS NEEDED-NOT TO EXCEED 3 DOSES IN 24 HOURS. USE SPARINGLY. PMH Chronic Tension Headaches History of bleeding duodenal ulcer secondary to NSAID use Alcohol/substance/prescription medications abuse Cervical spine degenerative disc disease Esophageal motility disorder Left lumbar radiculopathy Left meralgia paraesthetica . Surgical History Left fibula/ankle surgery Thumb surgery Hernia repair Left elbow tendon surgery on 08/03/16 Family History His mom due to COPD, she also had cataract Father alive, was diagnosed with prostate CA at age 63. He also had an uncle diagnosed with prostate cancer in his 60's Social History Hx Alcohol Use: Yes (clean x 2 weeks, in outpatient rehab) Hx Substance Use: Yes (marijuana) Hx Tobacco Use: No Smoking Status: Never Smoker Living Arrangement: with Family Exam Vital Signs Vital Sign - Last Date Time Temp Pulse Resp B/P Pulse Ox O2 Delivery O2 Flow Rate FiO2 12/17/16 20:12 74 118/57 117/57 12/17/16 19:11 37.1 15 100 Room Air Exam General: Alert, Oriented X3, Cooperative, No acute Distress Eyes: PERRLA, Scleral Anicteric Mouth: Mouth Normal, Mucous Membranes Moist/[place] Neck: Supple, no Thyromegaly, trachea central. Chest & Lungs: Clear to auscultation & percussion, No adventitious breath sounds, no crackles, no wheeze Cardiovascular: Normal S1, Normal S2, No Murmurs/Rubs/Gallops, Regular Rate/ Rhythm, (No JVD, no peripheral edema) Pulses: Radial (present and equal), Dorsalis Pedi (present and equal) Abdomen: Soft, Non-tender, Non-distended, Normoactive bowel tones. Musculoskeletal: Unremarkable. Normal range of motion, no swollen or erythematous joints Extremities: No edema, no cyanosis, no clubbing. Skin: No rashes. Warm and dry, no erythematous areas Neurological: Grossly neurologically intact, Normal Speech, Sensation Intact Lymphatic: Lymph nodes Cervical and Axillary not palpable. Lab and Diagnostics Labs Laboratory Tests Test 12/17/16 19:25 12/17/16 20:30 White Blood Count 9.3th/mm3 (3.8-10.1) Red Blood Count 3.05mil/mm3 (4.40-5.80) Hemoglobin 9.5g/dL (13.8-17.2) Hematocrit 27.7% (41.0-50.0) Mean Corpuscular Volume 90.8fL (81-100) Mean Corpuscular Hemoglobin 31.1pg (27.0-35.0) Mean Corpuscular Hemoglobin Concent 34.3% (32.0-37.0) Red Cell Distribution Width 12.8% (12.3-15.4) Platelet Count 261bil/L (150-400) Neutrophils (%) (Auto) 79.6% (40-74) Lymphocytes (%) (Auto) 14.8% (14-46) Monocytes (%) (Auto) 4.3% (4-12) Eosinophils (%) (Auto) 0.5% (0-5) Basophils (%) (Auto) 0.6% (0-3) Prothrombin Time 10.3sec (8.1-12.5) Prothromb Time International Ratio 0.96ratio Sodium Level 134mEq/L (134-144) Potassium Level 4.1mEq/L (3.5-5.2) Chloride Level 97mEq/L (97-108) Carbon Dioxide Level 24mmol/L (18-29) Blood Urea Nitrogen 42mg/dL (6-24) Creatinine 0.56mg/dL (0.76-1.27) Estimat Glomerular Filtration Rate 160mL/min (>59) Glucose Level 172mg/dL (60-99) Calcium Level 9.2mg/dL (8.5-10.1) Magnesium Level 1.6mg/dL (1.6-2.6) Total Bilirubin 0.3mg/dL (0.0-1.2) Aspartate Amino Transf (AST/SGOT) 18U/L (0-50) Alanine Aminotransferase (ALT/SGPT) 19U/L (0-44) Alkaline Phosphatase 48U/L (25-150) Troponin T < 0.010ug/L (0.0-0.011) Total Protein 6.2g/dL (6.4-8.4) Albumin 4.0g/dL (3.4-5.0) Hold Sung Top Tube Received (Received) Hold Urine Received (Received) Result Diagram: 12/17/16192412/17/161924 X-Rays, CTs and MRIs X-RAY CHEST ONE VIEW, PORTABLE 5 IMPRESSION: No acute process. Dictated by: Celine Herrera M.D. on 12/17/2016 at 20:04 Approved by: Celine Herrera M.D. on 12/17/2016 at 20:05 Assessment & Plan Ace Nichols is a 56 y/o male with prior Bleeding duodenal ulcers, Alcohol abuse, Chronic back pain who presenting to [facility] emergency department with complaints of black stool 1. Acute Upper GI bleeding. Present on admission Due to possible Peptic ulcer disease. Patient has prior history of Duodenal ulcer and on omeprazole as outpatient. Other causes includes Esophageal varices with history of Alcoholism, Erosive gastritis due to NSAID or Vascular ectasias. Elevation of BUN also provides evidence of Upper GI bleeding with new studies showing some correlation with poor prognosis if elevated during the first 24 hours of hospitalization - nothing by mouth - IV fluids resuscitations - continue Protonix drip - counseled patient to avoid NSAID, use Tylenol instead - Dr Garibay from GI consulted, possible endoscopy in the morning 2. Acute anemia due to blood loss on Chronic anemia. Present on admission Patient taking Iron supplement as outpatient. - monitor H/H q 4 hours - follow Restrictive blood transfusion guideline with trigger Hgb < 7 or with symptoms 3 Alcohol abuse/substance/prescription med - Watch for withdrawal,CIWA protocol. Last drink 2 weeks ago 4. Chronic back pain with Left lumbar radiculopathy and meralgia paraesthetica - continue Lyrica and outpatient follow up with Dr Saldana - Acetaminophen as needed for mild pain/fever/headache - Bowel regimen as needed - Antiemetic as needed Patient admitted under inpatient status with expected length of stay > 2 midnights for severity of present symptoms, complexities of treatment plan and risk for adverse event . Resuscitation Status: CPR: Attempt Resuscitation aMicol Huff MD December 17, 2016 21:21
[2016-12-17 22:38] VITALS: BP 111/66; PULSE 77; RESP 18; O2SAT 99
[2016-12-17] MEDS: Ondansetron 2 mg/mL 2 mL Inj IVPUSH PRN (22:39)
[2016-12-17] MEDS: 0.9% Sodium Chloride 1,000 ML IV SCH (22:45)
[2016-12-18] VITALS (18 sets, daily range): BP systolic 99–132; BP diastolic 52–80; PULSE 74–101; RESP 14–20; O2SAT 97–100
[2016-12-18] MEDS: Ondansetron 2 mg/mL 2 mL Inj IVPUSH PRN ×4 (02:37→20:59)
[2016-12-18] MEDS ORDERED: EPINEPHrine 0.1 mg/mL 10 mL Syringe ONE (03:51)
[2016-12-18] MEDS: 0.9% Sodium Chloride 250 ML IV SCH ×2 (06:26→08:01)
[2016-12-18] MEDS: 0.9% Sodium Chloride 1,000 ML IV SCH ×2 (07:14→16:53)
[2016-12-18] MEDS: Pantoprazole 8 mg/Hr Infusion IV SCH ×4 (08:01→16:53)
--- NOTE | 2016-12-18 09:55 | PCM.PNMED ---
Subjective Date of Service December 18, 2016 Subjective Mr Nichols is 56yo gentleman with prior bleeding duodenal ulcer history here with a GI bleed, melena at home. Nursing reports coffee ground emesis in the night, then emesis with bright red blood and clots on the bed and floor at 0430. Patient this morning is very nauseated, having dry heaves. Exam Vital Signs Vital Sign - Last Date Time Temp Pulse Resp B/P Pulse Ox O2 Delivery O2 Flow Rate FiO2 12/18/16 09:07 36.6 91 17 108/64 97 Room Air Intake and Output 12/17/16 12/17/16 12/18/16 Cumulative From/Thru 15:00 23:00 07:00 12/17/16 19:02 - 12/18/16 05:57 Intake Total 1000 ml 258 ml 1258 ml Output Total 1577 ml 1577 ml Balance 1000 ml -1319 ml -319 ml Intake IV Total 1000 ml 258 ml 1258 ml Output Urine Total 827 ml 827 ml Emesis 750 ml 750 ml # Bowel Movements 1 1 Exam General: Alert, Oriented X3, Cooperative, No acute Distress Eyes: PERRLA, Scleral Anicteric Mouth: Mouth Normal, Mucous Membranes Moist/[place] Neck: Supple, no Thyromegaly, trachea central. Chest & Lungs: Clear to auscultation & percussion, No adventitious breath sounds, no crackles, no wheeze Cardiovascular: Normal S1, Normal S2, No Murmurs/Rubs/Gallops, Regular Rate/ Rhythm, (No JVD, no peripheral edema) Abdomen: Soft, mild tenderness above the umbilicus, Non-distended, Normoactive bowel tones. Musculoskeletal: Unremarkable. Normal range of motion, no swollen or erythematous joints Extremities: No edema, no cyanosis, no clubbing. Skin: No rashes. Warm and dry, no erythematous areas Neurological: Grossly neurologically intact, Normal Speech, Sensation Intact IVs and Medications IV Fluids NS 100mls/hr IV Medications Reviewed: Medications were reviewed in detail Lab and Diagnostics Result Diagram: 12/18/16 0430 12/17/16 1925 X-Rays, CTs and MRIs X-RAY CHEST ONE VIEW, PORTABLE 5/ IMPRESSION: No acute process. Dictated by: Celine Herrera M.D. on 12/17/2016 at 20:04 Approved by: Celine Herrera M.D. on 12/17/2016 at 20:05 12-lead ECG NSR rate of 78 Assessment & Plan 56 y/o male with prior Bleeding duodenal ulcers, Alcohol abuse, Chronic back pain who presenting to [facility] emergency department with complaints of black stool 1. Acute Upper GI bleeding. Present on admission. Active Due to possible Peptic ulcer disease. Patient has prior history of Duodenal ulcer and on omeprazole as outpatient. Other causes includes Esophageal varices with history of Alcoholism, Erosive gastritis due to NSAID or Vascular ectasias. Elevation of BUN also provides evidence of Upper GI bleeding with new studies showing some correlation with poor prognosis if elevated during the first 24 hours of hospitalization - nothing by mouth - IV fluids resuscitations - continue Protonix drip - counseled patient to avoid NSAID, use Tylenol instead - Dr Garibay from GI will do endoscopy at 1100 2. Acute anemia due to blood loss on Chronic anemia. Present on admission Patient taking Iron supplement as outpatient. - monitor H/H q 4 hours - follow Restrictive blood transfusion guideline with trigger Hgb < 7 or with symptoms - Hgb 6.7 at 0500 on 12/18/16 - Transfusing PRBCs 2 units 3. Nausea, present on admission. Worsened - Reglan IV added to PRN meds. 3 Alcohol abuse/substance/prescription med - Watch for withdrawal,CIWA protocol. Last drink 2 weeks ago 4. Chronic back pain with Left lumbar radiculopathy and meralgia paraesthetica - continue Lyrica and outpatient follow up with Dr Saldana - Acetaminophen as needed for mild pain/fever/headache - Bowel regimen as needed - Antiemetic as needed Patient admitted under inpatient status with expected length of stay > 2 midnights for severity of present symptoms, complexities of treatment plan and risk for adverse event . Pain Evaluation: Adequate Pain Control GI Prophylaxis: Proton Pump Inhibitor VTE Prophylaxis: Other (actively bleeding, no VTE prophylaxis at this time) Resuscitation Status: CPR: Attempt Resuscitation Attending Statement The patient was seen and examined together with Resident/House-Staff on 12/18/16 and I agree with the history, exam and plan as outlined in the note above. Migue Suero DO December 18, 2016 09:34 Nehemias Larsen December 20, 2016 16:41
[2016-12-18] MEDS: MetoCLOpramide 5 mg/mL 2 mL Inj IVPUSH PRN (10:09)
--- NOTE | 2016-12-18 11:20 | CONS ---
[address] [address] CONSULTATION REPORT PATIENT: JOSÉ WOOD : 1960 MR#: [id number] ADMIT: 12/17/2016 JOB ID: [id number] DATE OF SERVICE: 12/18/2016 GASTROENTEROLOGY CONSULTATION: I had the pleasure of seeing the patient at [facility] for GI bleeding. This is a 56-year-old gentleman who had prior bleeding ulcers several years ago, history of alcohol abuse, chronic back pain who also uses pain medications including Aleve, occasional ibuprofen. Last time he used Aleve was a few days ago and he has used maybe three doses of Aleve in the past week because of his back pain. Also he has been taking intermittent ibuprofen because of the back pain. His last drink according to patient was about 2-1/2 weeks ago. He started having black stools about 72 hours ago. Formed black stools. Did not have any multiple bowel movements. Then, the day later, which was yesterday, he started having a little bit more. However, he started having episodes of dizziness and lightheadedness. When he got up all of a sudden, he felt like he was going to pass out and he noticed his heart rate racing. Also during this time, he noted some mild epigastric discomfort, 2/10 pain intensity without any radiation. Worsened with eating with no relieving factors. He had no nausea, vomiting and he felt like he did not want to eat because of nausea and did not eat anything starting in the evening. He came to the ED and in the emergency department, he was noted to be anemic and repeat hemoglobin went from 9.5 to 7. He was given 2 units of blood overnight. He had an episode of coffee-ground emesis. During this time, no hypotension or tachycardia was noted. When I saw him this morning, he denied any lightheadedness, dizziness, chest pain, shortness of breath. Mild abdominal pain as described above. No bloody stools and he denied any bloody emesis. It was more or less coffee-ground emesis with some clots. This is the first time he vomited. He was given Protonix drip overnight and he just finished his second unit of blood. DATE OF SERVICE: PAST MEDICAL HISTORY: 1. Tension headaches. 2. History of duodenal ulcer due to NSAID use. 3. Alcohol abuse. 4. Back pain. 5. Lumbar radiculopathy. PAST SURGICAL HISTORY: 1. Thumb surgery. 2. Hernia repair. 3. Left elbow tendon surgery. FAMILY HISTORY: COPD. ALCOHOL: Last used 2-1/2 weeks ago. History of outpatient rehab. He does use marijuana, does not use tobacco. MEDICATIONS: Here include Reglan, IV Protonix, Zofran, Tylenol, senna, Mag hydroxide and MiraLAX. PHYSICAL EXAMINATION: Vitals include temp of 37, pulse 80, respirations 17, blood pressure 132/69. Again overnight he was not tachycardic. His blood pressure was stable. When he was vomiting, no hypotension or tachycardia was reported. Head and neck: No icterus. Lungs: Clear. Cardiovascular: Regular rate and rhythm. Abdomen: Soft. Mild epigastric tenderness. No guarding, rebound or firmness. Nondistended with normoactive bowel sounds. Extremities: No pitting edema of the ankles. Skin shows no obvious jaundice. LABORATORY DATA: Hemoglobin 9.5, repeat 7.2. At midnight at 4:30 in the morning, it was 6.7. He finished his two units of blood probably about an hour ago. Coags: INR was 0.96. Chemistry: BUN 42, creatinine 0.56. LFTs are normal and finally platelets were 261,000. IMPRESSION: This is a gentleman who has melena with coffee-ground emesis. Most likely, peptic ulcer disease from NSAID use, combination of alcohol and not taking his Protonix consistently. He is currently hemodynamically stable. He is not dizzy, lightheaded at this point. Continue Protonix IV drip and keep him n.p.o. I spoke to him about importance of continuing the omeprazole and avoiding Aleve or any kind of NSAIDs. If he continues this as well as consuming alcohol, it could cause early demise of his life expectancy.
[2016-12-18] MEDS ORDERED: Propofol 10,000 mCg/mL 20 mL Inj ONE (11:40)
[2016-12-18] MEDS ORDERED: fentaNYL-PF 50 mCg/mL 2 mL Inj ONE (11:40)
[2016-12-18] MEDS ORDERED: Lactated Ringer's 1,000 ML IV ONE (12:09)
[2016-12-18] MEDS: Lactated Ringer's 1,000 ML IV SCH ×2 (12:09→12:46)
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
[2016-12-18] MEDS ORDERED: Atropine 0.4 mg/mL Inj IVPUSH PRN (12:10)
[2016-12-18] MEDS ORDERED: Ondansetron 2 mg/mL 2 mL Inj IVPUSH PRN (12:10)
[2016-12-18] MEDS ORDERED: MetoCLOpramide 5 mg/mL 2 mL Inj IVPUSH PRN (12:10)
--- NOTE | 2016-12-18 13:00 | PCM.ANEP1 ---
Post Anesthesia Phase 1 PACU Phase 1 Assessment Date of Service: December 18, 2016 Vital Signs Vital Signs Date Time Temp Pulse Resp B/P Pulse Ox O2 Delivery O2 Flow Rate FiO2 12/18/16 12:55 79 18 122/67 100 Nasal Cannula 2 12/18/16 12:50 74 15 100/74 100 Nasal Cannula 4 12/18/16 10:07 37.0 83 17 132/69 12/18/16 10:05 83 12/18/16 09:07 36.6 91 17 108/64 97 Room Air 12/18/16 08:11 36.6 91 17 108/64 12/18/16 07:54 37.0 89 18 116/63 12/18/16 06:01 36.5 94 16 123/72 12/18/16 05:45 36.2 97 14 109/71 12/18/16 05:25 101 Anesthetic Administered: MAC Level of Alertness: Sleepy, easy to arouse RIGGS's with Equal Strength: Yes Pain: No Nausea or Vomiting: No Oxygen Delivery: Nasal Cannula Lungs: Clear to Auscultation, Normal Air Movement Complications: No Follow up Care: No Patient Instructions Provided: Yes Ronni Merlos MD December 18, 2016 13:00
--- NOTE | 2016-12-18 13:04 | PCM.ENDEGD ---
EGD Date of Service: December 18, 2016 Physician Maicol Huff MD Pre Procedure Diagnosis: Bleeding Post Procedure Dx & Findings: Ulcer with a clot. Successful hemostasis Procedure Esophagogastroduodenoscopy PROCEDURE IN DETAIL: After proper sedation, Olympus video endoscope was inserted into patient's mouth and esophagus was successfully intubated. Scope introduced esophagus. Esophagus showed normal shiny whitish mucosa consistent with squamous cell component. Z line was intact. Scope further advanced to the stomach. Stomach showed normal shiny mucosa with normal appearing rugae folds without any ulcer mass erosion. Cardia fundus body antrum pylorus were all visualized. Retroflexion was done. Stomach was easily inflated and deflatable using air. However in the stomach, we noticed few clots and dark red blood. This was washed and suctioned. In the pylorus, we saw a streak of blood extending into the duodenum. Duodenal bulb was noted and long the bulb had some blood. There was also deformity. Washings done. We also also clean based ulcers in the pyloric channel. Sizes were about half a centimeter. There was a moderate amount of narrowing between the duodenal bulb and the first pass of the duodenum. In between the narrowing and a fold in an acute angle, there was a ulcer with a clot. Washings done. Visualization was difficult due to the acute angle. 2 mL of epinephrine injected. An aggressive washing done. We set a base of the ulcer. Appears to have a visible vessel. Gold probe used and ulcer was cauterized. Hemostasis successful. Scope further events to the distal duodenum. Duodenum revealed normal villous structures with normal appearing folds without any mass ulcer erosion. Impression 1 ulcer with visible vessel. Epinephrine injection with cautery and successful hemostasis. Recommendation IV Protonix drip 8 mg an hour for the next 48 hours. Clear liquid diet. Presedation Assessment Risks and Benefits Informed consent was obtained from the patient after all risks and benefits including but not limited to drug reaction, infection, pain, bleeding, perforation, as well as alternatives were discussed. Patient monitoring Continuous pulse oximetry, cardiac monitoring, blood pressure monitoring, IV access, and oxygen at 2L per nasal cannula. Complications There were no periprocedural complications identified. Post Procedure Plan Post Procedure Recommendations 1. Restrict activities today. 2. Resume normal activities in the morning. 3. Resume medications. 4. GERD behavioral modification: - Avoid fatty, acidic, spicy, large meals - Do not lie down after meals - Do not eat or drink anything for at least 2 1/2 hours before going to bed at night - Discontinue tobacco and alcohol - Decrease or avoid caffeine - Avoid chocolate and mints - Decrease weight - Avoid aspirin and non steroidal anti-inflammatory agents (NSAID) such as Aleve, Advil, Mobic, Naproxen, Ibuprofen, etc 5. Add proton pump inhibitor. Take 30 minutes before 1st meal of the day. 6. Patient informed of normal post procedure side effects as bloating, drowsiness, blood streaking in the stool 7. If gastric biopsy reveal H.pylori, continue with appropriate treatment 8. If small bowel biopsy reveals celiac, continue with appropriate treatment 9. Please don't hesitate to call me with any questions Osvaldo Garibay MD December 18, 2016 13:04
[2016-12-18] MEDS ORDERED: TIZA2TAB3 PO (19:41)
[2016-12-18] MEDS ORDERED: OMEP40CA36 PO (19:44)
[2016-12-19] VITALS (10 sets, daily range): BP systolic 95–109; BP diastolic 54–68; PULSE 71–84; RESP 16–20; O2SAT 99–100
[2016-12-19] MEDS: 0.9% Sodium Chloride 1,000 ML IV SCH ×3 (05:23→23:14)
[2016-12-19] MEDS: Pantoprazole 8 mg/Hr Infusion IV SCH ×4 (05:24→12:20)
[2016-12-19] MEDS: Ondansetron 2 mg/mL 2 mL Inj IVPUSH PRN (08:41)
--- NOTE | 2016-12-19 10:34 | PCM.PNMED ---
Subjective Date of Service December 19, 2016 Subjective Pulmonary patient said he had bloody bowel movementin 12 hours ago. Hemoglobin is decreasing this morning will need to be repeated. Patient has no additional complaints. Yesterday EGD identified a ulcer with hemostasis achieved with epinephrine and cautery. Exam Vital Signs Vital Sign - Last Date Time Temp Pulse Resp B/P Pulse Ox O2 Delivery O2 Flow Rate FiO2 12/19/16 09:54 75 12/19/16 08:37 36.8 16 103/62 100 Room Air 12/18/16 13:00 2 Intake and Output 12/18/16 12/18/16 12/19/16 Cumulative From/Thru 14:59 22:59 06:59 12/17/16 19:02 - 12/19/16 06:38 Intake Total 1420 ml 2724 ml 710 ml 6112 ml Output Total 128 ml 1705 ml Balance 1420 ml 2596 ml 710 ml 4407 ml Intake Oral 672 ml 672 ml IV Total 820 ml 1752 ml 710 ml 4540 ml Packed Cells 600 ml 300 ml 900 ml Output Urine Total 125 ml 952 ml Stool Total 3 ml 3 ml Emesis 750 ml # Voids 3 3 # Bowel Movements 1 2 Exam General: Patient awake and alert HEENT: Neck supple, no lymphadenopathy Cardio: Regular rate and rhythm Respiratory: CTA bilaterally Abdomen; nontender, nondistended, soft Rectal: Some residual black stool but nothing in the rectal vault. Neuro: Intact Psych: Appropriate mood and affect IVs and Medications Medications Reviewed: Medications were reviewed in detail Lab and Diagnostics Result Diagram: 12/19/16 0240 12/19/16 0240 X-Rays, CTs and MRIs X-RAY CHEST ONE VIEW, PORTABLE IMPRESSION: No acute process. Dictated by: Celine Herrera M.D. on 12/17/2016 at 20:04 Approved by: Celine Herrera M.D. on 12/17/2016 at 20:05 12-lead ECG NSR rate of 78 Assessment & Plan 56-year-old male with acute GI bleed due to alcohol and NSAID use with an identified ulcer on EGD with successful hemostasis with epinephrine and cautery. Patient is doing much better today. Did state that he had a bloody bowel movement about 12 hours ago which is likely just residual. We will continue to follow the patient while he is here, at this time do not suspect an ongoing bleeding issue. Hgb is stable. Hgb 8.4 to 7.7 to 8.4 this afternoon. I saw and examined the patient with the resident and agree with above. Thank you for allowing us but as per the care this patient GI Prophylaxis: Proton Pump Inhibitor VTE Prophylaxis: Other (actively bleeding, no VTE prophylaxis at this time) Resuscitation Status: CPR: Attempt Resuscitation Rene Leslie DO December 19, 2016 10:34 Osvaldo Garibay MD December 19, 2016 13:54
--- NOTE | 2016-12-19 11:06 | PCM.PNMED ---
Subjective Date of Service December 19, 2016 Subjective Hospital day 3. Patient went to endoscopy yesterday at which time was found to have a duodenal ulcer with coagulated blood around it with visible vessel. He is status post proximally 4 units of blood. Hemoglobin this morning is 7.7. Per GI recommendations he needs to continue on PPI drip today and clear fluids at least until tomorrow. Patient this a.m. reports minimal epigastric discomfort in his abdomen and minimal nausea, but notes that he has been up and walking around the room without lightheadedness or dizziness. Denies other complaints. Late morning patient reports increased anxiety and concern that he is "bleeding again." He received a one-time dose of 5 mg Valium earlier this hospitalization with increased anxiety of presentation. Focused ROS is otherwise negative. Exam Vital Signs Vital Sign - Last Date Time Temp Pulse Resp B/P Pulse Ox O2 Delivery O2 Flow Rate FiO2 12/19/16 09:54 75 12/19/16 08:37 36.8 16 103/62 100 Room Air 12/18/16 13:00 2 Intake and Output 12/18/16 12/18/16 12/19/16 Cumulative From/Thru 15:00 23:00 07:00 12/17/16 19:02 - 12/19/16 06:38 Intake Total 1420 ml 2724 ml 710 ml 6112 ml Output Total 128 ml 1705 ml Balance 1420 ml 2596 ml 710 ml 4407 ml Intake Oral 672 ml 672 ml IV Total 820 ml 1752 ml 710 ml 4540 ml Packed Cells 600 ml 300 ml 900 ml Output Urine Total 125 ml 952 ml Stool Total 3 ml 3 ml Emesis 750 ml # Voids 3 3 # Bowel Movements 1 2 Exam General: Alert, Oriented X3, Cooperative, No acute Distress Eyes: PERRL, Scleral Anicteric Mouth: Mouth Normal, Mucous Membranes Moist/Cedro Neck: Supple, no Thyromegaly, trachea central. Chest & Lungs: Clear to auscultation & percussion, No adventitious breath sounds, no crackles, no wheeze Cardiovascular: Normal S1, Normal S2, No Murmurs/Rubs/Gallops, Regular Rate/ Rhythm, (No JVD, no peripheral edema) Abdomen: Soft, mild tenderness above the umbilicus, Non-distended, Normoactive bowel tones. Musculoskeletal: Unremarkable. Normal range of motion, no swollen or erythematous joints Extremities: No edema, no cyanosis, no clubbing. Skin: No rashes. Warm and dry, no erythematous areas Neurological: Grossly neurologically intact, Normal Speech, Sensation Intact IVs and Medications Medications Reviewed: Medications were reviewed in detail Lab and Diagnostics Laboratory Tests Test 12/18/16 16:45 12/18/16 20:42 12/19/16 02:40 Hemoglobin 9.1g/dL (13.8-17.2) 8.4g/dL (13.8-17.2) 7.7g/dL (13.8-17.2) Hematocrit 26.6% (41.0-50.0) 24.7% (41.0-50.0) 23.1% (41.0-50.0) Sodium Level 140mEq/L (134-144) Potassium Level 3.8mEq/L (3.5-5.2) Chloride Level 106mEq/L (97-108) Carbon Dioxide Level 24mmol/L (18-29) Blood Urea Nitrogen 17mg/dL (6-24) Creatinine 0.68mg/dL (0.76-1.27) Estimat Glomerular Filtration Rate 128mL/min (>59) Glucose Level 127mg/dL (60-99) Calcium Level 7.6mg/dL (8.5-10.1) Result Diagram: 12/19/16 0240 12/19/16 0240 X-Rays, CTs and MRIs X-RAY CHEST ONE VIEW, PORTABLE 5 IMPRESSION: No acute process. Dictated by: Celine Herrera M.D. on 12/17/2016 at 20:04 Approved by: Celine Herrera M.D. on 12/17/2016 at 20:05 12-lead ECG NSR rate of 78 Additional Diagnostics 12/18/16 Procedure Esophagogastroduodenoscopy Impression 1 ulcer with visible vessel. Epinephrine injection with cautery and successful hemostasis. Recommendation IV Protonix drip 8 mg an hour for the next 48 hours. Clear liquid diet. Presedation Assessment Risks and Benefits Informed consent was obtained from the patient after all risks and benefits including but not limited to drug reaction, infection, pain, bleeding, perforation, as well as alternatives were discussed. Patient monitoring Continuous pulse oximetry, cardiac monitoring, blood pressure monitoring, IV access, and oxygen at 2L per nasal cannula. Complications There were no periprocedural complications identified. Post Procedure Plan Post Procedure Recommendations 1. Restrict activities today. 2. Resume normal activities in the morning. 3. Resume medications. 4. GERD behavioral modification: - Avoid fatty, acidic, spicy, large meals - Do not lie down after meals - Do not eat or drink anything for at least 2 1/2 hours before going to bed at night - Discontinue tobacco and alcohol - Decrease or avoid caffeine - Avoid chocolate and mints - Decrease weight - Avoid aspirin and non steroidal anti-inflammatory agents (NSAID) such as Aleve, Advil, Mobic, Naproxen, Ibuprofen, etc 5. Add proton pump inhibitor. Take 30 minutes before 1st meal of the day. 6. Patient informed of normal post procedure side effects as bloating, drowsiness, blood streaking in the stool 7. If gastric biopsy reveal H.pylori, continue with appropriate treatment 8. If small bowel biopsy reveals celiac, continue with appropriate treatment 9. Please don't hesitate to call me with any questions <Electronically signed by Osvaldo Garibay MD> 12/18/16 1302 Assessment & Plan 56 y/o male with prior Bleeding duodenal ulcers, Alcohol abuse, Chronic back pain who presenting to [facility] emergency department with complaints of black stool 1. Acute Upper GI bleeding. Present on admission. Improved -Endoscopy confirmed duodenal ulceration with visible vessel (status post epinephrine injection with cautery) -GI recommendations as noted above * In summary, these include: Continue PPI drip, continue on clear fluid diet, and the additional discharge recommendations as noted above - counseled patient to avoid NSAID, use Tylenol instead -Appreciate the expertise of the GI service in the care of this patient 2. Acute anemia due to blood loss on Chronic anemia. Present on admission Patient taking Iron supplement as outpatient. -Status post 4 units PRBC - Labs as noted above -Repeat H&H this afternoon at 1400 with consideration for transfusion as noted below. - follow Restrictive blood transfusion guideline with trigger Hgb < 7 or with symptoms -Additional management of duodenal ulcer as noted above 3. Nausea, present on admission. Worsened - Reglan or ondansetron IV added to PRN meds. -Management of GI bleed as noted above 3 Alcohol abuse/substance/prescription med - Watch for withdrawal,CIWA protocol. Last drink 2 weeks ago 4. Chronic back pain with Left lumbar radiculopathy and meralgia paraesthetica - continue Lyrica and outpatient follow up with Dr Saldana 5. Acute anxiety secondary to GI bleed, and concerns of his own mortality. -Provide calming environment while we address his acute medical issues as noted above -We will provide a 1 time dose of 0.5 lorazepam IV to monitor for effect -Consideration for additional dose if needed - Acetaminophen as needed for mild pain/fever/headache - Bowel regimen as needed - Antiemetic as needed Patient admitted under inpatient status with expected length of stay > 2 midnights for severity of present symptoms, complexities of treatment plan and risk for adverse event Disposition: If H&H stabilizes and not in need of any further blood transfusions today are overnight, potential for discharge home tomorrow. Pain Evaluation: Adequate Pain Control GI Prophylaxis: Proton Pump Inhibitor VTE Prophylaxis: Other (actively bleeding, no VTE prophylaxis at this time) Resuscitation Status: CPR: Attempt Resuscitation Attending Statement The patient was seen and examined together with Resident/House-Staff on 12/19/16 and I agree with the history, exam and plan as outlined in the note above. Antoni Castellanos DO December 19, 2016 11:06 Nehemias Larsen December 20, 2016 17:02
[2016-12-19] MEDS: MetoCLOpramide 5 mg/mL 2 mL Inj IVPUSH PRN ×2 (11:43→21:42)
[2016-12-20 03:14] LABS: Mean Corpuscular Hemoglobin 30.2 pg (27.0-35.0); Mean Corpuscular Volume 92.5 fL (81-100)
[2016-12-20 03:32] VITALS: BP 105/61; PULSE 71; RESP 18; O2SAT 99
[2016-12-20] MEDS: 0.9% Sodium Chloride 250 ML IV SCH (04:55)
[2016-12-20] MEDS: Pantoprazole 8 mg/Hr Infusion IV SCH ×6 (05:37→18:20)
[2016-12-20] MEDS: 0.9% Sodium Chloride 1,000 ML IV SCH (09:08)
[2016-12-20 09:11] VITALS: PULSE 68
[2016-12-20 09:16] VITALS: BP 100/62; PULSE 69; RESP 18; O2SAT 100
[2016-12-20] MEDS: MetoCLOpramide 5 mg/mL 2 mL Inj IVPUSH PRN (09:23)
--- NOTE | 2016-12-20 10:43 | PCM.PNMED ---
Subjective Date of Service December 20, 2016 Subjective GI progress note Overnight the patient did well. Patient's last tarry stool was over 36 hours ago now with one normal bowel movement in between. Patient denies any additional bleeding, dizziness, nausea, vomiting, abdominal pain, chest pain, shortness of breath, all other review of systems are negative. Patient's H&H has been relatively stable around 8 with a relatively normal CMP and coagulation. Exam Vital Signs Vital Sign - Last Date Time Temp Pulse Resp B/P Pulse Ox O2 Delivery O2 Flow Rate FiO2 12/20/16 09:16 36.8 69 18 100/62 100 Room Air 12/18/16 13:00 2 Intake and Output 12/19/16 12/19/16 12/20/16 Cumulative From/Thru 15:00 23:00 07:00 12/17/16 19:02 - 12/20/16 04:59 Intake Total 760 ml 530 ml 7402 ml Output Total 1705 ml Balance 760 ml 530 ml 5697 ml Intake Oral 760 ml 530 ml 1962 ml IV Total 4540 ml Packed Cells 900 ml Output Urine Total 952 ml Stool Total 3 ml Emesis 750 ml # Voids 6 3 12 # Bowel Movements 1 3 Exam General: Patient awake and alert Cardio: Regular rate and rhythm Respiratory: CTA bilaterally Abdomen; nontender, nondistended, soft Rectal: Some residual black stool but nothing in the rectal vault. Neuro: Intact Psych: Appropriate mood and affect IVs and Medications Medications Reviewed: Medications were reviewed in detail Lab and Diagnostics Result Diagram: 12/20/16 0705 12/20/16 0240 X-Rays, CTs and MRIs X-RAY CHEST ONE VIEW, PORTABLE IMPRESSION: No acute process. Dictated by: Celine Herrera M.D. on 12/17/2016 at 20:04 Approved by: Celine Herrera M.D. on 12/17/2016 at 20:05 12-lead ECG NSR rate of 78 Additional Diagnostics 12/18/16 Procedure Esophagogastroduodenoscopy Impression 1 ulcer with visible vessel. Epinephrine injection with cautery and successful hemostasis. Recommendation IV Protonix drip 8 mg an hour for the next 48 hours. Clear liquid diet. Presedation Assessment Risks and Benefits Informed consent was obtained from the patient after all risks and benefits including but not limited to drug reaction, infection, pain, bleeding, perforation, as well as alternatives were discussed. Patient monitoring Continuous pulse oximetry, cardiac monitoring, blood pressure monitoring, IV access, and oxygen at 2L per nasal cannula. Complications There were no periprocedural complications identified. Post Procedure Plan Post Procedure Recommendations 1. Restrict activities today. 2. Resume normal activities in the morning. 3. Resume medications. 4. GERD behavioral modification: - Avoid fatty, acidic, spicy, large meals - Do not lie down after meals - Do not eat or drink anything for at least 2 1/2 hours before going to bed at night - Discontinue tobacco and alcohol - Decrease or avoid caffeine - Avoid chocolate and mints - Decrease weight - Avoid aspirin and non steroidal anti-inflammatory agents (NSAID) such as Aleve, Advil, Mobic, Naproxen, Ibuprofen, etc 5. Add proton pump inhibitor. Take 30 minutes before 1st meal of the day. 6. Patient informed of normal post procedure side effects as bloating, drowsiness, blood streaking in the stool 7. If gastric biopsy reveal H.pylori, continue with appropriate treatment 8. If small bowel biopsy reveals celiac, continue with appropriate treatment 9. Please don't hesitate to call me with any questions <Electronically signed by Osvaldo Garibay MD> 12/18/16 1354 Assessment & Plan 56-year-old male with acute GI bleed due to alcohol and NSAID use with an identified ulcer on EGD with successful hemostasis with epinephrine and cautery. Patient has been asymptomatic with normal bowel movement over the last 36 hours with no complaints of melena or hematochezia. Patient's GI bleed seems to have resolved after EGD and after advancing diet, if tolerated, patient can be discharged. It is very important to note that patient needs to cease alcohol and avoid all NSAID use. Patient also had a follow-up in the GI clinic in 2 weeks. Thank you for allowing us to participate in the care of this patient I saw and examined this patient with the resident. Agree with the above. GI Prophylaxis: Proton Pump Inhibitor VTE Prophylaxis: Other (actively bleeding, no VTE prophylaxis at this time) Resuscitation Status: CPR: Attempt Resuscitation Rene Leslie DO December 20, 2016 10:43 Osvaldo Garibay MD December 28, 2016 20:08
--- NOTE | 2016-12-20 16:54 | PCM.DIMED ---
Discharge Instructions Date of Service December 20, 2016 Dates of Hospitalization December 17, 2016 at 21:16 Discharge Diagnosis Discharge Diagnosis Acute Upper GI Bleed, Acute Anemia due to blood loss Medication Instructions Omeprazole 40mg PO before first meal of the day Avoid NSAIDs and aspirin Resume other home medications Test Results Laboratory Tests Test 12/20/16 02:40 12/20/16 07:05 White Blood Count 8.8th/mm3 (3.8-10.1) Red Blood Count 2.52mil/mm3 (4.40-5.80) Hemoglobin 7.6g/dL (13.8-17.2) 8.1g/dL (13.8-17.2) Hematocrit 23.3% (41.0-50.0) 23.8% (41.0-50.0) Mean Corpuscular Volume 92.5fL (81-100) Mean Corpuscular Hemoglobin 30.2pg (27.0-35.0) Mean Corpuscular Hemoglobin Concent 32.6% (32.0-37.0) Red Cell Distribution Width 14.3% (12.3-15.4) Platelet Count 186bil/L (150-400) Sodium Level 139mEq/L (134-144) Potassium Level 3.6mEq/L (3.5-5.2) Chloride Level 103mEq/L (97-108) Carbon Dioxide Level 25mmol/L (18-29) Blood Urea Nitrogen 9mg/dL (6-24) Creatinine 0.64mg/dL (0.76-1.27) Estimat Glomerular Filtration Rate 137mL/min (>59) Glucose Level 106mg/dL (60-99) Calcium Level 8.2mg/dL (8.5-10.1) Diet Other (as in patient instructions.) Activity No restrictions Call your provider Fever or Chills, Shortness of breath, Bleeding, Chest pain, Vomitting, Excessive diarrhea, Weakness (unilateral), Other (melena) Patient Instructions From GI: 1. Restrict activities today. 2. Resume normal activities in the morning. 3. Resume medications. 4. GERD behavioral modification: - Avoid fatty, acidic, spicy, large meals - Do not lie down after meals - Do not eat or drink anything for at least 2 1/2 hours before going to bed at night - Discontinue tobacco and alcohol - Decrease or avoid caffeine - Avoid chocolate and mints - Decrease weight - Avoid aspirin and non steroidal anti-inflammatory agents (NSAID) such as Aleve, Advil, Mobic, Naproxen, Ibuprofen, etc 5. Add proton pump inhibitor (Omeprazole 40mg). Take 30 minutes before 1st meal of the day. 6. Patient informed of normal post procedure side effects as bloating, drowsiness, blood streaking in the stool 7. If gastric biopsy reveal H.pylori, continue with appropriate treatment 8. If small bowel biopsy reveals celiac, continue with appropriate treatment 9. Please don't hesitate to call Dr Garibay with any questions Follow-up Provider: Chuckie Mercedes MD Follow-up with PCP in: 1 week Provider: Osvaldo Garibay MD Follow-up in: 4 weeks (Please call for an appointment.) Migue Suero DO December 20, 2016 16:54
--- NOTE | 2016-12-21 17:17 | PCM.DC.MED ---
Discharge Summary Date of Service December 21, 2016 Dates of Hospitalization Date of Hospital Admission December 17, 2016 at 21:16 Date of Discharge: December 20, 2016 Providers: Admitting Physician: Maicol Huff MD Primary Care Physician: Chuckie Mercedes MD Attending Physician: Maicol Huff MD Diagnosis at Time of Discharge Diagnosis at Time of Discharge Acute Upper GI Bleed, Acute Anemia due to blood loss Consultations Osvaldo Garibay MD, Gastroenterology Procedures XRay, CTs & MRIs X-RAY CHEST ONE VIEW, PORTABLE IMPRESSION: No acute process. ECG 12 Lead NSR rate of 78 Other Diagnostics 12/18/16 Procedure Esophagogastroduodenoscopy Impression 1 ulcer with visible vessel. Epinephrine injection with cautery and successful hemostasis. Recommendation IV Protonix drip 8 mg an hour for the next 48 hours. Clear liquid diet. Presedation Assessment Risks and Benefits Informed consent was obtained from the patient after all risks and benefits including but not limited to drug reaction, infection, pain, bleeding, perforation, as well as alternatives were discussed. Patient monitoring Continuous pulse oximetry, cardiac monitoring, blood pressure monitoring, IV access, and oxygen at 2L per nasal cannula. Complications There were no periprocedural complications identified. Post Procedure Plan Post Procedure Recommendations 1. Restrict activities today. 2. Resume normal activities in the morning. 3. Resume medications. 4. GERD behavioral modification: - Avoid fatty, acidic, spicy, large meals - Do not lie down after meals - Do not eat or drink anything for at least 2 1/2 hours before going to bed at night - Discontinue tobacco and alcohol - Decrease or avoid caffeine - Avoid chocolate and mints - Decrease weight - Avoid aspirin and non steroidal anti-inflammatory agents (NSAID) such as Aleve, Advil, Mobic, Naproxen, Ibuprofen, etc 5. Add proton pump inhibitor. Take 30 minutes before 1st meal of the day. 6. Patient informed of normal post procedure side effects as bloating, drowsiness, blood streaking in the stool 7. If gastric biopsy reveal H.pylori, continue with appropriate treatment 8. If small bowel biopsy reveals celiac, continue with appropriate treatment 9. Please don't hesitate to call me with any questions <Electronically signed by Osvaldo Garibay MD> 12/18/16 1304 Brief History Ace Nichols is a 56 y/o male with prior Bleeding duodenal ulcers, Alcohol abuse, Chronic back pain who presenting to [facility] emergency department with complaints of black stool onset yesterday afternoon. He reported 2 episodes with the initial one yesterday afternoon and another episode this morning. associated symptoms includes mild epigastric discomfort, sharp 2/10 pain without any radiation, exacerbated with eating and no relieving factors. Patient also reports nausea but no vomiting or hematemesis. He also did not feel like eating since last night He also reports feeling his heart beating faster when he stands up w/ cold sweats, feelings of going between hot and cold. He denies any feelings of faintness, bright red blood in stool or chest discomfort. He recently took some Aleve at night for arthritis pain. He previously had a bleeding duodenal ulcer years ago related to NSAID. Patient aware Aleve is an NSAID but his arthritis pain has been bad. He was also suppose to take Omeprazole but did not take any for the last 4 days as he ran out Patient has not drink alcohol for about 2 weeks. He is currently in rehab as an outpatient. Patient is apologetic about his drinking as well as the medication abuse he endured in August but is currently clean. Case discussed with Dr Fuller. Vitals showed no tachycardia or hypotension. He discussed case with Dr Garibay. Currently on IV fluids and Protonix drip was started Hospital Course 56 y/o male with prior Bleeding duodenal ulcers, Alcohol abuse, Chronic back pain who presenting to [facility] emergency department with complaints of black stool 1. Acute Upper GI bleeding. Present on admission. Resolved -Endoscopy confirmed duodenal ulceration with visible vessel (status post epinephrine injection with cautery) -GI recommendations as noted above * In summary, these include: Continue PPI drip, continue on clear fluid diet, and the additional discharge recommendations as noted above - counseled patient to avoid NSAID, use Tylenol instead -Appreciate the expertise of the GI service in the care of this patient 2. Acute anemia due to blood loss on Chronic anemia. Present on admission Patient taking Iron supplement as outpatient. -Status post 4 units PRBC - Labs as noted above -Repeat H&H this afternoon at 1400 with consideration for transfusion as noted below. - follow Restrictive blood transfusion guideline with trigger Hgb < 7 or with symptoms -Additional management of duodenal ulcer as noted above 3. Nausea, present on admission. Worsened - Reglan or ondansetron IV added to PRN meds. -Management of GI bleed as noted above 3 Alcohol abuse/substance/prescription med - Watch for withdrawal,CIWA protocol. Last drink 2 weeks ago 4. Chronic back pain with Left lumbar radiculopathy and meralgia paraesthetica - continue Lyrica and outpatient follow up with Dr Saldana 5. Acute anxiety secondary to GI bleed, and concerns of his own mortality. -Provide calming environment while we address his acute medical issues as noted above -We will provide a 1 time dose of 0.5 lorazepam IV to monitor for effect -Consideration for additional dose if needed - Acetaminophen as needed for mild pain/fever/headache - Bowel regimen as needed - Antiemetic as needed Patient admitted under inpatient status with expected length of stay > 2 midnights for severity of present symptoms, complexities of treatment plan and risk for adverse event Disposition: Home Exam Vital Signs (Last) Date Time Temp Pulse Resp B/P Pulse Ox O2 Delivery O2 Flow Rate FiO2 12/20/16 09:16 36.8 69 18 100/62 100 Room Air 12/18/16 13:00 2 Exam General: Alert, Oriented X3, Cooperative, No acute Distress Eyes: PERRL, Scleral Anicteric Mouth: Mouth Normal, Mucous Membranes Moist/[place]ill Neck: Supple, no Thyromegaly, trachea central. Chest & Lungs: Clear to auscultation & percussion, No adventitious breath sounds, no crackles, no wheeze Cardiovascular: Normal S1, Normal S2, No Murmurs/Rubs/Gallops, Regular Rate/ Rhythm, (No JVD, no peripheral edema) Abdomen: Soft, mild tenderness above the umbilicus, Non-distended, Normoactive bowel tones. Musculoskeletal: Unremarkable. Normal range of motion, no swollen or erythematous joints Extremities: No edema, no cyanosis, no clubbing. Skin: No rashes. Warm and dry, no erythematous areas Neurological: Grossly neurologically intact, Normal Speech, Sensation Intact Test 12/17/16 19:25 12/17/16 20:30 12/18/16 04:30 12/20/16 02:40 Neutrophils (%) (Auto) 79.6% (40-74) Lymphocytes (%) (Auto) 14.8% (14-46) Monocytes (%) (Auto) 4.3% (4-12) Eosinophils (%) (Auto) 0.5% (0-5) Basophils (%) (Auto) 0.6% (0-3) Prothrombin Time 10.3sec (8.1-12.5) Prothromb Time International Ratio 0.96ratio Magnesium Level 1.6mg/dL (1.6-2.6) Total Bilirubin 0.3mg/dL (0.0-1.2) Aspartate Amino Transf (AST/SGOT) 18U/L (0-50) Alanine Aminotransferase (ALT/SGPT) 19U/L (0-44) Alkaline Phosphatase 48U/L (25-150) Troponin T < 0.010ug/L (0.0-0.011) Total Protein 6.2g/dL (6.4-8.4) Albumin 4.0g/dL (3.4-5.0) Hold Urine Received (Received) Hold Sung Top Tube Received (Received) White Blood Count 8.8th/mm3 (3.8-10.1) Red Blood Count 2.52mil/mm3 (4.40-5.80) Mean Corpuscular Volume 92.5fL (81-100) Mean Corpuscular Hemoglobin 30.2pg (27.0-35.0) Mean Corpuscular Hemoglobin Concent 32.6% (32.0-37.0) Red Cell Distribution Width 14.3% (12.3-15.4) Platelet Count 186bil/L (150-400) Sodium Level 139mEq/L (134-144) Potassium Level 3.6mEq/L (3.5-5.2) Chloride Level 103mEq/L (97-108) Carbon Dioxide Level 25mmol/L (18-29) Blood Urea Nitrogen 9mg/dL (6-24) Creatinine 0.64mg/dL (0.76-1.27) Estimat Glomerular Filtration Rate 137mL/min (>59) Glucose Level 106mg/dL (60-99) Calcium Level 8.2mg/dL (8.5-10.1) Test 12/20/16 07:05 Hemoglobin 8.1g/dL (13.8-17.2) Hematocrit 23.8% (41.0-50.0) Discharge Medications Discharge Medications Citalopram (Citalopram) 20 Mg Tablet 20 MG PO DAILY Prescribed by: RAUL ROSA MD Ferrous Sulfate (Ferrous Sulfate) 325 Mg Tablet 325 MG PO DAILY (Reported) Multivitamin (Multi Vitamin Daily) 1 Each Tablet 1 EACH PO DAILY (Reported) Omeprazole (Omeprazole) 40 Mg Capsule.dr 40 MG PO DAILY (Reported) Thiamine HCl (Thiamine HCl) 500 Mg Tablet 500 MG PO DAILY Prescribed by: RAUL ROSA MD As needed Hydrocodone-Acetaminophen 5-325 mg (Hydrocodone-Acetaminophen 5-325 mg) 1 Each Tablet 1 EACH PO TID PRN PRN For Pain (Reported) Tizanidine (Tizanidine) 2 Mg Tablet 2 MG PO PRN For Spasm (Reported) Additional med instructions Omeprazole 40mg PO before first meal of the day Avoid NSAIDs and aspirin Resume other home medications Followup Plan Disposition: Home Follow-up plan Instructions as below for follow-up care. Also follow-up with primary care in 1 week Discharge Diet: Other (as in patient instructions.) Discharge Activity: No restrictions Patient Instructions From GI: 1. Restrict activities today. 2. Resume normal activities in the morning. 3. Resume medications. 4. GERD behavioral modification: - Avoid fatty, acidic, spicy, large meals - Do not lie down after meals - Do not eat or drink anything for at least 2 1/2 hours before going to bed at night - Discontinue tobacco and alcohol - Decrease or avoid caffeine - Avoid chocolate and mints - Decrease weight - Avoid aspirin and non steroidal anti-inflammatory agents (NSAID) such as Aleve, Advil, Mobic, Naproxen, Ibuprofen, etc 5. Add proton pump inhibitor (Omeprazole 40mg). Take 30 minutes before 1st meal of the day. 6. Patient informed of normal post procedure side effects as bloating, drowsiness, blood streaking in the stool 7. If gastric biopsy reveal H.pylori, continue with appropriate treatment 8. If small bowel biopsy reveals celiac, continue with appropriate treatment 9. Please don't hesitate to call Dr Garibay with any questions Follow-up Provider: Chuckie Mercedes MD Follow-up with PCP in: 1 week Provider: Osvaldo Garibay MD Follow-up in: 4 weeks (Please call for an appointment.) Time spent 35 min Attending Statement The patient was seen and examined together with Resident/House-staff on 12/20/16 and I agree with the history, exam and plan as outlined in the note above. copies to: Chuckie Mercedes MD, Alan C DO December 21, 2016 17:17 Nehemias Larsen December 24, 2016 16:53
== END 2016-12-20 19:08 | disposition home or self-care (01) | DRG 378 ==
LOC: SED 18:57 → PCC 21:16
PROVIDERS: ADMIT Hospitalist; ATTEND Hospitalist
PROC: 30233N1 Transfusion of Nonautologous Red Blood Cells into Peripheral Vein, Percutaneous Approach (ICD-10-PCS; 2016-12-18)
PROC: 0DJ08ZZ Inspection of Upper Intestinal Tract, Via Natural or Artificial Opening Endoscopic (ICD-10-PCS; 2016-12-18)
PROC: 0W3P8ZZ Control Bleeding in Gastrointestinal Tract, Via Natural or Artificial Opening Endoscopic (ICD-10-PCS; principal; 2016-12-18 12:30)
DX: K26.4 Chronic or unspecified duodenal ulcer with hemorrhage (principal); D62 Acute posthemorrhagic anemia; F10.10 Alcohol abuse, uncomplicated; M54.16 Radiculopathy, lumbar region; G57.12 Meralgia paresthetica, left lower limb; R11.0 Nausea; F06.4 Anxiety disorder due to known physiological condition